=== PATIENT | female | born 1950 | race Caucasian/White ===

== ENCOUNTER → 2017-03-03 | Outpatient (CLI) | payer MEDICARE ==
--- NOTE | 2017-03-15 09:29 | ECHOF ---
Referral Reason:C50.112 breast CA,I10 Hypertention MEASUREMENTS -------- HEIGHT: 157.5 cm WEIGHT: 100.2 kg BP: 151/102 RVIDd: 3.0 cm (< 3.3) IVSd: 1.4 cm (0.6 - 1.1) LVIDd: 4.6 cm (3.9 - 5.3) LVPWd: 1.4 cm (0.6 - 1.1) IVSs: 1.9 cm LVIDs: 2.5 cm LVPWs: 2.0 cm LAESV Index (A-L): 22.48 ml/m Ao Diam: 2.9 cm (2.0 - 3.7) AV Cusp: 1.3 cm (1.5 - 2.6) LA Diam: 3.7 cm (2.7 - 3.8) EPSS: 0.7 cm MV E Julian: 0.96 m/s MV DecT: 233 ms MV A Julian: 0.84 m/s MV E/A Ratio: 1.15 RAP: 5.00 mmHg RVSP: 12.36 mmHg MV EF SLOPE: 47.07 mm/s (70 - 150) MV EXCURSION: 1.47 cm (> 18.000) FINDINGS -------- Sinus rhythm. This was a technically adequate study. The left ventricular size is normal. There is mild concentric left ventricular hypertrophy. Overa ll left ventricular systolic function is normal with, an EF between 55 - 60 %. The right ventricle is normal in size and function. Normal LA size by volume 22+/-6 ml/m2. The right atrium is normal in size. Aortic valve is trileaflet and is mildly thickened. Trace amount of aortic regurgitation. There is no evidence of aortic stenosis. The mitral valve leaflets are mildly thickened. There is trace to mild mitral regurgitation. Trace tricuspid regurgitation present. Right ventricular systolic pressure is normal at < 35 mmHg. There is no evidence of pulmonary hypertension. The pulmonic valve was not well visualized. The aortic root size is normal. Normal inferior vena cava with normal inspiratory collapse consistent with estimated right atrial pre ssure of 5 mmHg. The pericardium is normal. There is no pericardial effusion. CONCLUSIONS -------- 1. Sinus rhythm. 2. This was a technically adequate study. 3. The left ventricular size is normal. 4. There is mild concentric left ventricular hypertrophy. 5. Overall left ventricular systolic function is normal with, an EF between 55 - 60 %. 6. Normal LA size by volume 22+/-6 ml/m2. 7. Aortic valve is trileaflet and is mildly thickened. 8. Trace amount of aortic regurgitation. 9. The mitral valve leaflets are mildly thickened. 10. Trace tricuspid regurgitation present. 11. Right ventricular systolic pressure is normal at < 35 mmHg. 12. There is no evidence of pulmonary hypertension. 13. The pulmonic valve was not well visualized. 14. The aortic root size is normal. 15. There is no pericardial effusion. SUPERVISOR OF OFFICIALS: El Mullins RDCS
== END | disposition home or self-care (01) ==
LOC: RADECHMAIN 16:05
PROVIDERS: ATTEND Internal Medicine Hematology & Oncology
DX: R06.02 Shortness of breath (principal); C50.919 Malignant neoplasm of unspecified site of unspecified female breast; I10 Essential (primary) hypertension
CPT/HCPCS: 93306

== ENCOUNTER → 2018-02-22 | Outpatient (CLI) | payer MEDICARE ==
--- NOTE | 2018-02-22 16:36 | PN ---
PROGRESS NOTE DATE OF SERVICE: 02/22/2015 This patient is a 68-year-old lady who has been followed in the sleep center for treatment of obstructive sleep apnea-hypopnea syndrome. Patient continues to use her CPAP equipment every night for the whole night without any significant problems related to mask fitting, pressure or humidification. Her [place] Sleepiness Scale is 4. MEDICATIONS: 1. Prozac. 2. Zocor. 3. Tenormin. 4. Xanax. PHYSICAL EXAMINATION: GENERAL: A pleasant patient in no distress. VITAL SIGNS: BP 198/79, HR 64, RR 16, height 5 feet 1 inch, weight 228, body mass index 43, temperature 97.4. HEENT: PERRLA, EOMI. Evaluation of oropharynx showed tongue protrudes midline. Moderately low position of soft palate. NECK: Supple. No JVD. Thyroid is not palpable. LUNGS: Clear to percussion and to auscultation. Good air exchange. No wheezing or rhonchi. HEART: S1, S2 regular. No murmurs, gallops or rubs. ABDOMEN: Slightly obese. EXTREMITIES: No clubbing or cyanosis. METAL BED ASSEMBLER: Awake, alert, and oriented X3. Cranial nerves 2 to 7 intact. There is no fasciculation or atrophy. noted. No focal deficits observed. IMPRESSION: 1. Obstructive sleep apnea-hypopnea syndrome. Patient demonstrated good compliance with treatment, benefitting from treatment. 2. Obesity. 3. Hypertension. 4. Hyperlipidemia. 5. History of left breast cancer, status post surgical treatment, chemotherapy and radiation. 6. History of anxiety. PLAN: 1. Patient will continue to use her CPAP equipment every night for the whole night. 2. Watching and losing weight. 3. Prescription for all necessary CPAP supplies, including nasal pillow mask, tube, filters, chamber for the humidifier. 4. Sleep hygiene with regular time in bed for at least 8 hours. 5. No driving if feeling any sleepiness. Thank you very much for allowing me to participate in the management of your patient. Sincerely, Kadeem Gibbs MD, PhD, FAASM Diplomat of [employer] Flour Tester of [facility] [place] MMODL / JULIETAN: [id number] /
== END | disposition home or self-care (01) ==
LOC: SLEEP 14:36
PROVIDERS: ATTEND Internal Medicine
DX: G47.33 Obstructive sleep apnea (adult) (pediatric) (principal); Z99.89 Dependence on other enabling machines and devices; Z79.899 Other long term (current) drug therapy; E66.9 Obesity, unspecified; I10 Essential (primary) hypertension; E78.5 Hyperlipidemia, unspecified; F41.9 Anxiety disorder, unspecified; Z85.3 Personal history of malignant neoplasm of breast; Z92.21 Personal history of antineoplastic chemotherapy; Z92.3 Personal history of irradiation; Z68.41 Body mass index [BMI] 40.0-44.9, adult

== ENCOUNTER → 2019-02-07 | Outpatient (CLI) | payer MEDICARE ==
--- NOTE | 2019-02-07 16:02 | PN ---
PROGRESS NOTE DATE OF SERVICE: 02/07/2019 This patient is a 69-year-old lady who has been followed in Sleep Center for treatment of obstructive sleep apnea-hypopnea syndrome. The patient successfully continues to use her CPAP equipment every night for the whole night. Recently she has had some problems related to fitting of her nasal pillow mask. She is an using AirFit P10 nasal pillow mask. [place] Sleepiness Scale today is 4, which is normal. I checked the patient's CPAP unit. CPAP pressure of 14 cm of water. Usage is 30/30 nights for more than 4 hours with average usage 10.5 hours per night. Leak is 28 L/minute, which is high for the nasal pillow mask. Apnea-hypopnea index, though, is only 1.4, which is absolutely perfect. MEDICATIONS: 1. Baby aspirin. 2. Crestor. 3. Arimidex. 4. Atenolol. 5. Prozac. 6. Amlodipine. PHYSICAL EXAMINATION: GENERAL: A pleasant patient in no distress. VITAL SIGNS: BP 194/83 in right arm, HR 64, RR 16, height 5 feet 1 inch, weight 224 pounds, body mass index 42.3. Patient lost 4 pounds compared to her weight during her previous visit. Temperature 97.9. Oxygen saturation at room air 99%. HEENT: PERRLA, EOMI. Evaluation of oropharynx showed tongue protrudes midline. Low position of soft palate. Mallampati III. NECK: Supple. No JVD. Thyroid is not palpable. LUNGS: Clear to percussion and to auscultation. Good air exchange. No wheezing or rhonchi. HEART: S1, S2 regular. No murmurs, gallops or rubs. ABDOMEN: Obese. EXTREMITIES: No clubbing or cyanosis. GROWTH HACKER: Awake, alert, and oriented X3. Cranial nerves 2 to 7 intact. There is no fasciculation or atrophy. noted. No focal deficits observed. IMPRESSION: 1. Obstructive sleep apnea-hypopnea syndrome. The patient demonstrated 100% compliance with treatment, benefitting from treatment. 2. Hypertension. 3. Obesity. 4. Hyperlipidemia. 5. History of carcinoma of left breast, status post surgical treatment, chemotherapy and radiation. 6. History of anxiety. PLAN: 1. Patient will continue to use CPAP equipment every night for the whole night with the same pressure. 2. I will consider using a different style of nasal pillows, possibly DreamWear gel nasal pillows. 3. Losing weight. 4. Sleep hygiene with regular time in bed for at least 8 hours. 5. No driving if feeling any sleepiness. Thank you very much for allowing me to participate in the management of your patient. Sincerely, Kadeem Gibbs MD, PhD, FAASM Diplomat of [employer] Talent Buyer of [facility] [place] MMODL / IJN: [id number] /
== END | disposition home or self-care (01) ==
LOC: SLEEP 13:58
PROVIDERS: ATTEND Internal Medicine
DX: G47.33 Obstructive sleep apnea (adult) (pediatric) (principal); I10 Essential (primary) hypertension; E66.9 Obesity, unspecified; E78.5 Hyperlipidemia, unspecified; Z85.3 Personal history of malignant neoplasm of breast; Z92.21 Personal history of antineoplastic chemotherapy; Z86.59 Personal history of other mental and behavioral disorders; Z68.41 Body mass index [BMI] 40.0-44.9, adult; Z79.82 Long term (current) use of aspirin; Z79.899 Other long term (current) drug therapy

== ENCOUNTER 2020-03-17 07:52 | Day surgery (SDC) | payer MEDICARE ==
[2020-03-13 10:11] VITALS: BMI 39.3
[~2020-03-17 07:52] MED LIST: ALPRAZolam 0.25 MG TAB PO PRN; ALPRAZolam 0.5 MG TAB PO PRN; ASPIRIN 325 MG TAB PO STA; ATORVASTATIN 80 MG TAB PO STA; NITROGLYCERIN SL TABS 0.4 MG TAB SUBLINGUAL PRN; SODIUM CHLORIDE 0.9% 1,000 ML in EMPTY BAG 1 BAG IV ONE
[2020-03-17] MEDS ORDERED: SODIUM CHLORIDE 0.9% 1,000 ML IV ONE (08:15)
[2020-03-17 08:26] VITALS: RESP 16; TEMP 98.5
[2020-03-17 08:41] LABS: Basophils # (A) 0.1 k/uL (0-0.2); Basophils % (A) 1 %; Eosinophils # (A) 1.1 k/uL (0-0.7); Eosinophils % (A) 13 %; HCT 43.5 % (34.0-46.0); HGB 14.8 gm/dL (11.4-16.0); Lymphocytes % (A) 25 %; MCH 32.5 pg (25.0-35.0); MCHC 34.2 g/dL (31.0-37.0); Mean Platelet Volume 7.5; Monocytes # (A) 0.4 k/uL (0-1.0); Monocytes % (A) 4 %; Neutrophils # (A) 4.3 k/uL (1.3-7.7); Neutrophils % (A) 54 %; Platelet Count 191 k/uL (150-450); RBC 4.57 m/uL (3.80-5.40); RDW 12.2 % (11.5-15.5)
[2020-03-17] MEDS ORDERED: VERAPAMIL 2.5 MG/ML 2 ML AMP ONE (08:46)
[2020-03-17] MEDS ORDERED: LIDOCAINE 1% INJ 10MG/ML (20 ML MDV) ONE (08:46)
[2020-03-17] MEDS ORDERED: HEPARIN SODIUM 1,000 UN/ML (10ML VL) ONE (08:46)
[2020-03-17 08:47] LABS: African American GFR (CKD) >90 (>60 ml/min/1.73 sqM); Anion Gap 11 mmol/L; Blood Urea Nitrogen 14 mg/dL (7-17); Calcium 10.4 mg/dL (8.4-10.2); Carbon Dioxide 21 mmol/L (22-30); Chloride 105 mmol/L (98-107); Glucose 158 mg/dL (74-99); Non-African American GFR(CKD) 81 (>60 ml/min/1.73 sqM); Potassium 4.2 mmol/L (3.5-5.1); Sodium 137 mmol/L (137-145)
[2020-03-17] MEDS ORDERED: fentaNYL (PF) 50 MCG/ML 2 ML AMP ONE (08:47)
[2020-03-17] MEDS ORDERED: fentaNYL (PF) 50 MCG/ML 2 ML AMP IVP ONE (09:29)
[2020-03-17] MEDS ORDERED: LIDOCAINE 1% INJ 10MG/ML (20 ML MDV) SQ ONE (09:32)
[2020-03-17] MEDS ORDERED: VERAPAMIL SYRINGE (5 MG/10 ML) INTRAARTER ONE (09:47)
[2020-03-17] MEDS ORDERED: NITROGLYCERIN SL TABS 0.4 MG TAB SUBLINGUAL ONE (09:50)
[2020-03-17] MEDS ORDERED: HEPARIN SODIUM 1,000 UN/ML (10ML VL) IV ONE ×2 (09:52→09:58)
[2020-03-17] MEDS ORDERED: CLOPIDOGREL 75 MG TAB ONE (10:03)
[2020-03-17] MEDS ORDERED: CLOPIDOGREL 75 MG TAB PO ONE (10:08)
[2020-03-17] MEDS ORDERED: IOPAMIDOL-370 125ML BTL INJ ONE ×2 (10:09→10:22)
[2020-03-17] MEDS ORDERED: NITROGLYCERIN 1000MCG/10ML SYRINGE INTRACORON ONE (10:10)
[2020-03-17] MEDS ORDERED: RX INFO: IV CONTRAST WAS GIVEN 1 EACH MISC MISCELLANE PRN (10:27)
[2020-03-17] MEDS ORDERED: MAG HYDROX/AL HYDROX/SIMETH 30 ML CUP PO PRN (10:27)
[2020-03-17] MEDS ORDERED: ATROPINE SULFATE 0.1 MG/ML 10ML SYRINGE IV PRN (10:27)
[2020-03-17] MEDS ORDERED: NITROGLYCERIN SL TABS 0.4 MG TAB SUBLINGUAL PRN (10:27)
[2020-03-17] MEDS ORDERED: ZOLPIDEM 5 MG TAB PO PRN (10:27)
[2020-03-17] MEDS ORDERED: ALPRAZolam 0.25 MG TAB PO PRN (10:29)
[2020-03-17] MEDS ORDERED: SODIUM CHLORIDE 0.9% 1,000 ML IV SCH (10:30)
--- NOTE | 2020-03-17 11:01 | CC ---
CARDIAC CATHETERIZATION REPORT Mrs. Snyder is a 70-year-old female with known history of hypertension, hyperlipidemia, who has been complaining of dyspnea on exertion, had a myocardial perfusion imaging that was consistent with stress-induced ischemia. In view of that, recommendation regarding cardiac catheterization. The procedures, risks, and complication were discussed with the patient who is in full understanding and agreement. PROCEDURE: Patient was brought to the laboratory equipment cleaner in a fasting semi-sedated state after receiving fentanyl and Benadryl and achieving moderate conscious sedated state using Xylocaine anesthesias and Seldinger technique, a 6-Tajik sheath was introduced in the right radial artery. Selective right and left coronary angiography performed using 5-Tajik, 3.5 bend right and left Cynthia catheter multiple views of the coronary artery including hemiaxial views were obtained. Following that the 5-Tajik right Cynthia was used to cross the aortic valve and left ventricular end-diastolic pressure was calculated. following that catheters were removed, images were reviewed. Of note, the patient received 5000 units of intravenous heparin as well as intra-arterial verapamil. FINDINGS: FLUOROSCOPY: There was calcification involving the proximal LAD and the right coronary artery. LEFT MAIN: This is a large-sized vessel, bifurcating into left circumflex, left anterior descending artery. Left main coronary artery has no evidence of high-grade stenosis. LEFT ANTERIOR DESCENDING ARTERY: This is a large-sized vessel, reaching toward the apex. Tapers down in distal third, gives a diagonal branch proximally. The diagonal branch is small to moderate in caliber in the mid segment has a 70%-80% stenosis. The LAD in the mid segment has a 40% to 50% plaque. The rest of the vessel has intimal disease without any evidence of high-grade stenosis. LEFT CIRCUMFLEX: This is a large nondominant vessel, giving rise to 3 obtuse marginal branch. The left circumflex has mild intimal disease in the mid segment of 20%-30% without any evidence of high-grade stenosis. RIGHT CORONARY ARTERY: This is a large dominant vessel, bifurcating distally into PDA, posterolateral segment and branches. The right coronary artery proximally is calcified, has an eccentric 70% plaque. The rest of the vessel has no high-grade stenosis. LEFT VENTRICULOGRAM: Left ventriculogram was not performed. HEMODYNAMICS: There was no gradient across the aortic valve. The left ventricular end- diastolic pressure was 18-20 mmHg. CONCLUSION: 1. Significant stenosis in proximal RCA. 2. Significant stenosis in the first diagonal branch that is small in caliber. 3. Mild disease in the left circumflex and mild to moderate disease in the mid LAD. RECOMMENDATION: In view of finding anatomy, I recommend proceeding with angioplasty and stenting of the right coronary artery. The procedure, its risks and complication were discussed with the patient who is in full understanding and agreement. MMODL / IJN: [id number] /
--- NOTE | 2020-03-17 11:07 | PTCA ---
PERCUTANEOUSTRANS CORORONARY ANGIOGRAPHY Mrs. Snyder is a 70-year-old female with known history of hypertension, hyperlipidemia, who has been complaining of progressive dyspnea on exertion, underwent cardiac catheterization, was found to have significant stenosis in the proximal right coronary artery. In view of that, recommendation was made regarding angioplasty and stenting, the procedures, risks, and complication were discussed with the patient who is in full understanding and agreement. PROCEDURE: Attempted to cannulate the right coronary ostium with a 6-Belarusian AL1 were unsuccessful. That guide was removed and 6-Belarusian AL 0.75 guiding catheter introduced into the system after cannulating the ostium of the right coronary artery. A 0.014 balanced medium weight J-wire was advanced across the lesion, positioned distally. Then a 3.0 x 15 mm Xience Susy stent was deployed, postdilated at 16 atmospheres. Following that, the balloon was removed and a 3.25 x 12 mm NC Emerge balloon was advanced and one inflation at 16 atmospheres was done. After the last inflation, after appropriate wait, the balloon and the guidewire were withdrawn back in the guiding catheter. Images were obtained and repeated. Those images reveal stable successful stenting. At that point, the guiding catheter, the balloon and the guidewire were removed. The sheath was removed, hemostasis was obtained with deployment of a TR band. There was no immediate complication. The patient returned to room in stable condition. Of note, the patient had no significant chest pain or EKG changes with the inflation. She received in addition 3000 units of intravenous heparin as well as well as oral loading dose of clopidogrel. She had her ACT monitor. RESULTS: Successful stenting of the proximal right coronary artery with reduction of stenosis of 70% to 0%. RECOMMENDATION: Patient will be continued on aspirin, Plavix and statin. The importance of dual antiplatelet treatment were discussed with the patient and her family who are in understanding and agreement. Duration of sedation 55 minutes. MMODL / IJN: [id number] /
--- NOTE | 2020-03-17 11:07 | LTR ---
DATE OF SERVICE: 03/17/2020 RE: ClaudioNallely Dear Dr. Roth; I had the pleasure cardiac catheterization, coronary angioplasty and stenting on Mrs. Snyder at [facility] on March 17, 2020 and a full copy of the procedure note will be forwarded to you. In brief, she was found to have significant stenosis involving the proximal right coronary artery, underwent successful stenting of that vessel. She was also found to have significant obstructive disease involving a small diagonal branch and I would recommend to maximize her medical therapy in that regard. I will keep you updated on her progress and thank you again for allowing me to participate in this patient's personal care. Please feel free to call for any questions. Sincerely yours, MD AMRIT DevriesL / JULIETAN: [id number] /
[2020-03-17] MEDS ORDERED: amLODIPine 5 MG TAB PO STA (11:35)
[2020-03-17] MEDS ORDERED: amLODIPine 5 MG TAB ONE (11:35)
[2020-03-17] MEDS ORDERED: hydroCHLOROthiazide 25 MG TAB PO SCH (15:00)
[2020-03-17 16:11] VITALS: BP 165/83; PULSE 71
[2020-03-18] MEDS ORDERED: amLODIPine 5 MG TAB PO SCH (09:00)
[2020-03-18] MEDS ORDERED: atenoloL 50 MG TAB PO SCH (09:00)
[2020-03-18] MEDS ORDERED: ASPIRIN 81 MG PO SCH (09:00)
[2020-03-18] MEDS ORDERED: NON FORMULARY DRUG (Calcium Carbonate [Calcium] 600 MG Tablet) PO SCH (09:00)
[2020-03-18] MEDS ORDERED: FLUoxetine HCL 20 MG CAP PO SCH (09:00)
[2020-03-18] MEDS ORDERED: NON FORMULARY DRUG (Losartan Potassium [Cozaar] 100 MG Tablet) PO SCH (09:00)
[2020-03-18] MEDS ORDERED: ANASTROZOLE 1 MG TAB PO SCH (09:00)
[2020-03-18] MEDS ORDERED: NON FORMULARY DRUG (Rosuvastatin 10 MG Tablet) PO SCH (09:00)
[2020-03-18] MEDS ORDERED: CLOPIDOGREL 75 MG TAB PO SCH (10:28)
== END 2020-03-17 16:35 | disposition home or self-care (01) ==
LOC: CATHCVL 07:52
PROVIDERS: ATTEND Internal Medicine Interventional Cardiology
DX: I25.10 Atherosclerotic heart disease of native coronary artery without angina pectoris (principal); I10 Essential (primary) hypertension; E78.2 Mixed hyperlipidemia; E66.9 Obesity, unspecified; Z79.82 Long term (current) use of aspirin; Z79.899 Other long term (current) drug therapy; Z88.0 Allergy status to penicillin; Z88.2 Allergy status to sulfonamides; Z88.1 Allergy status to other antibiotic agents; Z90.49 Acquired absence of other specified parts of digestive tract; Z98.890 Other specified postprocedural states; Z82.49 Family history of ischemic heart disease and other diseases of the circulatory system; Z87.891 Personal history of nicotine dependence; Z68.41 Body mass index [BMI] 40.0-44.9, adult
CPT/HCPCS: 93458; 85347; 80048; 85025; C9600; C1769 ×2; C1887 ×2; C1725; C1874; C1894; J2001; J3010; J1644; Q9967

== ENCOUNTER → 2020-12-16 | Outpatient (CLI) | payer MEDICARE ==
--- NOTE | 2020-12-16 11:42 | XR ---
EXAMINATION TYPE: XR chest 2V DATE OF EXAM: 12/16/2020 COMPARISON: NONE HISTORY: Shortness of breath TECHNIQUE: Frontal and lateral views of the chest are obtained. FINDINGS: Scattered senescent parenchymal changes noted. Hyperinflation compatible with COPD. No evidence for infiltrate. No evidence for atelectasis. Heart size is stable. Mediastinal structures are stable and grossly unremarkable. No evidence for hilar prominence. Degenerative changes dorsal spine. IMPRESSION: 1. No evidence for acute pulmonary disease.
== END | disposition home or self-care (01) ==
LOC: RADXRMAIN 10:36
PROVIDERS: ATTEND Internal Medicine Hematology & Oncology
DX: R06.02 Shortness of breath (principal)
CPT/HCPCS: 71046

== ENCOUNTER → 2022-01-24 | Outpatient (CLI) | payer MEDICARE ==
--- NOTE | 2022-01-24 17:07 | NM ---
EXAMINATION TYPE: NM bone scan whole body DATE OF EXAM: 01/24/2022 COMPARISON: NONE HISTORY: 72-year-old female C5 0.112, breast cancer, R52 bone pain. TECHNIQUE: Delayed whole-body scanning was performed following the injection of 24.6 mCi Tc 99m MDP. Images acquired 3 hours post injection. FINDINGS: Scattered degenerative tracer activity at the right greater than left sternoclavicular joints, both s houlders, posterior elements of the lower lumbar spine, mild scattered throughout the mid and lower t horacic spine, both knees especially the medial compartments, as well as the ankles and feet. No susp icious distribution of activity identified. IMPRESSION: Scattered degenerative tracer activity as above. No scintigraphic evidence for osseous metastatic dis ease.
== END | disposition home or self-care (01) ==
LOC: RADNMMAIN 10:55
PROVIDERS: ATTEND Internal Medicine Hematology & Oncology
DX: C50.112 Malignant neoplasm of central portion of left female breast (principal)
CPT/HCPCS: 78306; A9503

== ENCOUNTER 2022-12-15 12:23 | Day surgery (SDC) | payer MEDICARE ==
[~2022-12-15 12:23] MED LIST changes: +ACETAMINOPHEN TAB 500 MG TAB PO PRN; -ALPRAZolam 0.25 MG TAB PO PRN; -ALPRAZolam 0.5 MG TAB PO PRN; -ASPIRIN 325 MG TAB PO STA; -ATORVASTATIN 80 MG TAB PO STA; +HEPARIN SODIUM,PORCINE/PF 5,000 UNIT/0.5 ML SYRINGE SQ PRN; -NITROGLYCERIN SL TABS 0.4 MG TAB SUBLINGUAL PRN; +Pre Op ABX Message 1 EACH MISC MISCELLANE ONE; -SODIUM CHLORIDE 0.9% 1,000 ML in EMPTY BAG 1 BAG IV ONE
[2022-12-15] MEDS ORDERED: ONDANSETRON 4 MG/2 ML VIAL ONE (12:53)
[2022-12-15] MEDS ORDERED: LACTATED RINGERS 1,000 ML IV ONE (13:00)
[2022-12-15] MEDS ORDERED: MIDAZOLAM 2 MG/2 ML VIAL ONE (13:45)
[2022-12-15] MEDS ORDERED: fentaNYL (PF) 50 MCG/ML 2 ML AMP ONE (13:45)
[2022-12-15] MEDS ORDERED: ePHEDrine 50 MG/ML 1 ML VIAL ONE (13:45)
[2022-12-15] MEDS ORDERED: PROPOFOL 10 MG/ML 20 ML VIAL IV ONE (13:45)
[2022-12-15] MEDS ORDERED: LIDOCAINE 2% INJ 20 MG/ML (2 ML VIAL) ONE (13:45)
[2022-12-15] MEDS ORDERED: ceFAZolin 1,000 MG VIAL ONE (14:00)
[2022-12-15] MEDS ORDERED: SODIUM CHLORIDE 0.9% 100 ML BAG ONE (14:00)
[2022-12-15] MEDS ORDERED: HEPARIN SODIUM,PORCINE 100 UNIT/ML 5 ML VIAL IV ONE ×2 (14:13)
[2022-12-15] MEDS ORDERED: LIDOCAINE (PF) 10 MG/ML 2 ML VIAL SQ ONE ×2 (14:14)
[2022-12-15] MEDS ORDERED: SODIUM CHLORIDE 0.9% 50 ML with ceFAZolin 2,000 MG IV ONE ×2 (14:17)
--- NOTE | 2022-12-15 14:50 | FL ---
Intraoperative/procedural fluoroscopic services were provided for right IJ Port-A-Cath placement. Tot al fluoroscopy time is 8.3 seconds with a total of 2 submitted images to PACS. Total DAP [id number] mGym 2. Please see the operative note for further details.
[2022-12-15 15:03] VITALS: TEMP 97.3
[2022-12-15] MEDS ORDERED: NALOXONE 0.4 MG/ML 1 ML VIAL IV PRN (15:14)
--- NOTE | 2022-12-15 15:14 | P.OP ---
Date of Procedure: 12/15/22 Procedure(s) Performed: PREOPERATIVE DIAGNOSIS: Bladder cancer POSTOPERATIVE DIAGNOSIS: Same PROCEDURE: Port-A-Cath placement with fluoroscopic and ultrasound guidance SURGEON: Derian EBL: Minimal ANESTHESIA: Sedation COMPLICATIONS: None OPERATIVE PROCEDURE: Patient was brought and placed on the operative table in the supine position. The patient was sedated per anesthesia that time. The chest and neck were prepped and draped in usual sterile fashion. The ultrasound probe was used to identify the location of the right internal jugular vein. The skin was localized with lidocaine. The Seldinger needle was advanced into the IJ under ultrasound guidance. The wire was advanced through the needle under fluoroscopic guidance into the superior vena cava. A port pocket was created in the right infraclavicular location including the medial aspect of the previous scar site. The catheter was tunneled from the wire entrance site to the port pocket. The port was then connected to the catheter. The dilator introducer was threaded over the guidewire. The guidewire and dilator were then removed. The catheter was advanced through the introducer and introducer was then removed. The tip was seen to be in the right atrial junction via fluoroscopy. A picture of the radiograph showing the tip at the radial digital junction was taken. Port was flushed with both saline and a Hep-Lock solution. There was good flow both in and out of the port. The port was sutured in underlying tissues using 3-0 silk sutures. The subcutaneous tissues were reapproximated using 3-0 Vicryl sutures and the skin at both locations using 4-0 Monocryl sutures. Skin glue and sterile dressings then applied. DISPOSITION: Stable to recovery room
[2022-12-15] MEDS ORDERED: hydrALAZINE HCL 20 MG/ML 1 ML VIAL IVP ONE (15:34)
--- NOTE | 2022-12-15 15:38 | XR ---
EXAMINATION TYPE: XR chest 1V DATE OF EXAM: 12/15/2022 3:31 PM COMPARISON: Chest radiographs from 12/16/2020 TECHNIQUE: XR chest 1V Portable AP radiograph of the chest. CLINICAL INDICATION:Female, 72 years old with history of POST PORT PLACEMENT; FINDINGS: Lungs/Pleura: There is no evidence of pleural effusion, focal consolidation, or pneumothorax. Pulmonary vascularity: Unremarkable. Heart/mediastinum: Cardiomediastinal silhouette is enlarged. Atherosclerotic calcifications are seen in the aorta. Musculoskeletal: No acute osseous pathology. Degenerative changes of the thoracic spine. Other findings: Surgical clips in the left breast and axilla. Lines/Tubes: [id number] projecting over the right hemithorax with distal tip at the mid SVC. IMPRESSION: Interval placement of right IJ [id number] with distal tip of catheter at the mid SVC. No pneumotho rax.
[2022-12-15 16:11] VITALS: BP 172/69; PULSE 70; RESP 18
[2022-12-15] MEDS ORDERED: ACETAMINOPHEN TAB 325 MG TAB ONE (16:26)
[2022-12-15] MEDS ORDERED: ACETAMINOPHEN TAB 325 MG TAB PO ONE (16:27)
== END 2022-12-15 16:57 | disposition home or self-care (01) ==
LOC: OR 12:23
PROVIDERS: ATTEND Surgery
DX: Z45.2 Encounter for adjustment and management of vascular access device (principal); C67.9 Malignant neoplasm of bladder, unspecified; I10 Essential (primary) hypertension; E78.5 Hyperlipidemia, unspecified; Z87.891 Personal history of nicotine dependence; Z79.899 Other long term (current) drug therapy
CPT/HCPCS: 36561; 77001; 71045; C1788; J2250; J0360; J2001 ×2; J1642; J2405; J0690; J3010; J2704; J1644

== ENCOUNTER 2023-10-05 11:35 | Observation (INO) | payer MEDICARE ==
--- NOTE | 2023-10-05 12:57 | ED ---
GI Bleed HPI - General Chief complaint: GI Bleed Stated complaint: Rectal bleeding Time Seen by Provider: 10/05/23 12:25 Source: patient, RN notes reviewed, old records reviewed Mode of arrival: ambulatory Limitations: no limitations - History of Present Illness Initial comments: This is a 73-year-old female to the ER for evaluation of bright red blood per rectum. MD complaint: blood streaked stool, gross hematochezia -: unknown Quality: painless Consistency: intermittent Improves with: none Worsens with: none Context: history of GI bleed Associated Symptoms: denies other symptoms, weakness - Related Data Home Medications Medication Instructions Recorded Confirmed Aspirin [Adult Low Dose Aspirin EC] 81 mg PO HS 03/13/20 10/05/23 FLUoxetine HCL [PROzac] 20 mg PO DAILY 03/13/20 10/05/23 Multivitamins, Thera [Multivitamin 1 tab PO DAILY 12/09/22 10/05/23 (formulary)] Spironolactone [Aldactone] 25 mg PO DAILY 12/14/22 10/05/23 hydroCHLOROthiazide [Hydrodiuril] 25 mg PO DAILY 12/14/22 10/05/23 ALPRAZolam [Xanax] 0.5 mg PO TID PRN 10/05/23 10/05/23 Bumetanide [Bumex] 1 mg PO DAILY 10/05/23 10/05/23 Calcium Carbonate/Vitamin D3 1 tab PO DAILY 10/05/23 10/05/23 [Calcium 600 mg-Vit D3 5 mcg (200 unit)] Losartan [Cozaar] 50 mg PO DAILY 10/05/23 10/05/23 Rosuvastatin [Crestor] 20 mg PO HS 10/05/23 10/05/23 dilTIAZem HCL 30 mg PO TID@,,10/05/23 10/05/23 Previous Rx's Medication Instructions Recorded Nitroglycerin Sl Tabs [Nitrostat] 0.4 mg SUBLINGUAL Q5M PRN #25 tab 03/17/20 Allergies Allergy/AdvReac Type Severity Reaction Status Date / Time adhesive tape Allergy Rash/Hives Verified 10/05/23 15:13 clarithromycin Allergy Rash/Hives Verified 10/05/23 15:13 Penicillins Allergy Unknown Verified 10/05/23 15:13 Childhood Sulfa (Sulfonamide Allergy Unknown Verified 10/05/23 15:13 Antibiotics) Childhood Review of Systems ROS Statement: Those systems with pertinent positive or pertinent negative responses have been documented in the HPI. ROS Other: All systems not noted in ROS Statement are negative. Past Medical History Past Medical History: Atrial Fibrillation, Cancer, Heart Failure, Diabetes Mellitus, Hyperlipidemia, Hypertension, Osteoarthritis (OA), Renal Disease, Sleep Apnea/CPAP/BIPAP Additional Past Medical History / Comment(s): lt breast cancer-*do not use lt arm for b/p,IV's*, new dx. bladder cancer- had surg. heart murmur, SOB w/exertion. has cpap , bladder CA History of Any Multi-Drug Resistant Organisms: None Reported Past Surgical History: Breast Surgery, Section, Cholecystectomy, Heart Catheterization With Stent, Orthopedic Surgery Additional Past Surgical History / Comment(s): lt breast nipple removed, 20 lymph nodes removed lt axillae, hemorroidectomy, melvin. feet surgery, rt great toe screws, bladder tumor removed September @[place] Past Anesthesia/Blood Transfusion Reactions: Previous Problems w/ Anesthesia Additional Past Anesthesia/Blood Transfusion Reaction / Comment(s): pt has anesthesia letter indicating need for glidoscope due to difficult intubation Date of Last Stent Placement:: 2019 Past Psychological History: Anxiety, Depression Smoking Status: Former smoker Past Alcohol Use History: Daily Past Drug Use History: None Reported - Past Family History Father Family Medical History: COPD, Coronary Artery Disease (CAD) Additional Family Medical History / Comment(s): Fluid around heart Mother Family Medical History: No Reported History General Exam Limitations: no limitations General appearance: alert, in no apparent distress Head exam: Present: atraumatic, normocephalic, normal inspection Eye exam: Present: normal appearance, PERRL, EOMI. Absent: scleral icterus, conjunctival injection, periorbital swelling ENT exam: Present: normal exam, mucous membranes moist Neck exam: Present: normal inspection. Absent: tenderness, meningismus, lymphadenopathy Respiratory exam: Present: normal lung sounds bilaterally. Absent: respiratory distress, wheezes, rales, rhonchi, stridor Cardiovascular Exam: Present: regular rate, normal rhythm, normal heart sounds. Absent: systolic murmur, diastolic murmur, rubs, gallop, clicks GI/Abdominal exam: Present: soft, normal bowel sounds. Absent: distended, tenderness, guarding, rebound, rigid Extremities exam: Present: normal inspection, full ROM, normal capillary refill. Absent: tenderness, pedal edema, joint swelling, calf tenderness Back exam: Present: normal inspection Neurological exam: Present: alert, oriented X3, CN II-XII intact Psychiatric exam: Present: normal affect, normal mood Skin exam: Present: warm, dry, intact, normal color. Absent: rash Course Vital Signs 10/05/23 12:00 Temperature 98.1 F Pulse Rate 89 Respiratory 18 Rate Blood Pressure 111/74 O2 Sat by Pulse 98 Oximetry - Reevaluation(s) Reevaluation #1: 10/05/23 13:16 Medical records reviewed Reevaluation #2: 10/05/23 13:16 Symptoms improved unchanged Reevaluation #3: 10/05/23 15:25 When results and questions answered Reevaluation #4: Was pt. sent in by a medical professional or institution (, PA, PARKING METER ATTENDANT, urgent care, hospital, or retirement...) When possible be specific @ -no Did you speak to anyone other than the patient for history (EMS, parent, family, police, friend...)? What history was obtained from this source @ -no Did you review nursing and triage notes (agree or disagree)? Why? @ -agree Are old charts reviewed (outside hosp., previous admission, EMS record, old EKG, old radiological studies, urgent care reports/EKG's, retirement records)? Report findings @ -yes Differential Diagnosis (chest pain, altered mental status, abdominal pain women, abdominal pain men, vaginal bleeding, weakness, fever, dyspnea, syncope, headache, dizziness, GI bleed, back pain, seizure, CVA, palpatations, mental health, musculoskeletal)? @ -prior EKG interpreted by me (3pts min.). @ -yes X-rays interpreted by me (1pt min.). @ -yes negative for acute disease CT interpreted by me (1pt min.). @ -no U/S interpreted by me (1pt. min.). @ -no What testing was considered but not performed or refused? (CT, X-rays, U/S, labs)? Why? @ -none What meds were considered but not given or refused? Why? @ -none Did you discuss the management of the patient with other professionals (professionals i.e. , PA, PARKING METER ATTENDANT, lab, RT, psych nurse, high school social studies teacher, honing machine operator semiautomatic, teacher, workplace rehabilitation officer, transplant case manager)? Give summary @ -no Was smoking cessation discussed for >3mins.? @ -no Were there social determinants of health that impacted care today? How? (Homelessness, low income, unemployed, alcoholism, drug addiction, transportati on, low edu. Level, literacy, decrease access to med. care, penitentiary, rehab)? @ -none Was there de-escalation of care discussed even if they declined (Discuss DNR or withdrawal of care, Hospice)? DNR status @ -no What co-morbidities impacted this encounter? (DM, HTN, Smoking, COPD, CAD, Cancer, CVA, ARF, Chemo, Hep., AIDS, mental health diagnosis, sleep apnea, morbid obesity)? @ -none Was patient admitted / discharged? Hospital course, mention meds given and route, prescriptions, significant lab abnormalities, going to OR and other pertinent info. @ - Was critical care preformed (if so, how long)? @ -no Undiagnosed new problem with uncertain prognosis? @ -no Drug Therapy requiring intensive monitoring for toxicity (Heparin, Nitro, Insulin, Cardizem)? @ -no Were any procedures done? @ -no Diagnosis/symptom? @ - Acute, or Chronic, or Acute on Chronic? @ -Acute Uncomplicated (without systemic symptoms) or Complicated (systemic symptoms)? @ -Complicated Side effects of treatment? @ -no Exacerbation, Progression, or Severe Exacerbation? @ -exacerbation Poses a threat to life or bodily function? How? (Chest pain, [place], NV, pneumonia, PE, COPD, DKA, ARF, appy, cholecystitis, CVA, Diverticulitis, Homicidal, Suicidal, threat to staff... and all critical care pts) @ -yes Reevaluation #5: Differential GI Bleed: Esophageal varices, aortoenteric fistula, [place], gastritis, peptic ulcer disease, diverticulosis, inflammatory bowel disease, hemorrhoids, fissure, colitis, malignancy, Meckels diverticulum, this is not meant to be an all- inclusive list. Medical Decision Making - Medical Decision Making 73 Female with noted bright red blood per rectum twice yesterday, blood and blood clots without stool. Patient has had no episodes today no blood thinners, will admit for GI evaluation and monitoring of hemoglobin she has gone from 9-8 0.5-8.0 here in the emergency room today in the last week - Lab Data Result diagrams: 10/05/23 12:47 10/05/23 12:47 Lab Results 10/05/23 10/05/23 10/05/23 Range/Units 12:47 12:47 12:47 WBC 5.4 (3.8-10.6) k/uL RBC 2.60 L (3.80-5.40) m/uL Hgb 8.0 L (11.4-16.0) gm/dL Hct 24.8 L (34.0-46.0) % MCV 95.5 (80.0-100.0) fL MCH 30.6 (25.0-35.0) pg MCHC 32.1 (31.0-37.0) g/dL RDW 13.9 (11.5-15.5) % Plt Count 215 (150-450) k/uL MPV 8.1 Neutrophils % 76 % Lymphocytes % 11 % Monocytes % 5 % Eosinophils % 6 % Basophils % 0 % Neutrophils # 4.1 (1.3-7.7) k/uL Lymphocytes # 0.6 L (1.0-4.8) k/uL Monocytes # 0.3 (0-1.0) k/uL Eosinophils # 0.3 (0-0.7) k/uL Basophils # 0.0 (0-0.2) k/uL APTT 22.2 (22.0-30.0) sec Sodium 131 L (137-145) mmol/L Potassium 3.9 (3.5-5.1) mmol/L Chloride 100 (98-107) mmol/L Carbon Dioxide 20 L (22-30) mmol/L Anion Gap 11 mmol/L BUN 39 H (7-17) mg/dL Creatinine 1.77 H (0.52-1.04) mg/dL Est GFR (CKD-EPI)AfAm 32 (>60 ml/min/1.73 sqM) Est GFR (CKD-EPI)NonAf 28 (>60 ml/min/1.73 sqM) Glucose 116 H (74-99) mg/dL Calcium 10.2 (8.4-10.2) mg/dL Magnesium 1.7 (1.6-2.3) mg/dL Total Bilirubin 0.7 (0.2-1.3) mg/dL AST 26 (14-36) U/L ALT 18 (4-34) U/L Alkaline Phosphatase 70 (38-126) U/L Ammonia (<30) umol/L Troponin I (0.000-0.034) ng/mL Total Protein 7.8 (6.3-8.2) g/dL Albumin 4.5 (3.5-5.0) g/dL Lipase 129 (23-300) U/L Blood Type Blood Type Confirm Blood Type Recheck Bld Type Recheck Status Antibody Screen Spec Expiration Date 10/05/23 10/05/23 10/05/23 Range/Units 12:47 12:47 12:47 WBC (3.8-10.6) k/uL RBC (3.80-5.40) m/uL Hgb (11.4-16.0) gm/dL Hct (34.0-46.0) % MCV (80.0-100.0) fL MCH (25.0-35.0) pg MCHC (31.0-37.0) g/dL RDW (11.5-15.5) % Plt Count (150-450) k/uL MPV Neutrophils % % Lymphocytes % % Monocytes % % Eosinophils % % Basophils % % Neutrophils # (1.3-7.7) k/uL Lymphocytes # (1.0-4.8) k/uL Monocytes # (0-1.0) k/uL Eosinophils # (0-0.7) k/uL Basophils # (0-0.2) k/uL APTT (22.0-30.0) sec Sodium (137-145) mmol/L Potassium (3.5-5.1) mmol/L Chloride (98-107) mmol/L Carbon Dioxide (22-30) mmol/L Anion Gap mmol/L BUN (7-17) mg/dL Creatinine (0.52-1.04) mg/dL Est GFR (CKD-EPI)AfAm (>60 ml/min/1.73 sqM) Est GFR (CKD-EPI)NonAf (>60 ml/min/1.73 sqM) Glucose (74-99) mg/dL Calcium (8.4-10.2) mg/dL Magnesium (1.6-2.3) mg/dL Total Bilirubin (0.2-1.3) mg/dL AST (14-36) U/L ALT (4-34) U/L Alkaline Phosphatase (38-126) U/L Ammonia <9 (<30) umol/L Troponin I <0.012 (0.000-0.034) ng/mL Total Protein (6.3-8.2) g/dL Albumin (3.5-5.0) g/dL Lipase (23-300) U/L Blood Type O Positive Blood Type Confirm Blood Type Recheck No Previous Record Bld Type Recheck Status CABO Indicated Antibody Screen NEGATIVE Spec Expiration Date 10/08/2023 - 234610/05/23 Range/Units 14:08 WBC (3.8-10.6) k/uL RBC (3.80-5.40) m/uL Hgb (11.4-16.0) gm/dL Hct (34.0-46.0) % MCV (80.0-100.0) fL MCH (25.0-35.0) pg MCHC (31.0-37.0) g/dL RDW (11.5-15.5) % Plt Count (150-450) k/uL MPV Neutrophils % % Lymphocytes % % Monocytes % % Eosinophils % % Basophils % % Neutrophils # (1.3-7.7) k/uL Lymphocytes # (1.0-4.8) k/uL Monocytes # (0-1.0) k/uL Eosinophils # (0-0.7) k/uL Basophils # (0-0.2) k/uL APTT (22.0-30.0) sec Sodium (137-145) mmol/L Potassium (3.5-5.1) mmol/L Chloride (98-107) mmol/L Carbon Dioxide (22-30) mmol/L Anion Gap mmol/L BUN (7-17) mg/dL Creatinine (0.52-1.04) mg/dL Est GFR (CKD-EPI)AfAm (>60 ml/min/1.73 sqM) Est GFR (CKD-EPI)NonAf (>60 ml/min/1.73 sqM) Glucose (74-99) mg/dL Calcium (8.4-10.2) mg/dL Magnesium (1.6-2.3) mg/dL Total Bilirubin (0.2-1.3) mg/dL AST (14-36) U/L ALT (4-34) U/L Alkaline Phosphatase (38-126) U/L Ammonia (<30) umol/L Troponin I (0.000-0.034) ng/mL Total Protein (6.3-8.2) g/dL Albumin (3.5-5.0) g/dL Lipase (23-300) U/L Blood Type Blood Type Confirm O Positive Blood Type Recheck Bld Type Recheck Status Antibody Screen Spec Expiration Date - EKG Data -: EKG Interpreted by Me (EKG is sinus 83 [place] 177 QRS 105 QTc 424) Disposition Clinical Impression: Bladder cancer, GI bleed, Lower gastrointestinal hemorrhage Disposition: ADMITTED IP TO THIS [facility] Condition: Fair Instructions (If sedation given, give patient instructions): Gastrointestinal Bleeding (ED) Is patient prescribed a controlled substance at d/c from ED?: No Referrals: Isiah Roth MD [Primary Care Provider] - 1-2 days
[2023-10-05 13:29] LABS: Basophils % (A) 0 %; Eosinophils # (A) 0.3 k/uL (0-0.7); Eosinophils % (A) 6 %; HCT 24.8 % (34.0-46.0); Lymphocytes # (A) 0.6 k/uL (1.0-4.8); Lymphocytes % (A) 11 %; MCH 30.6 pg (25.0-35.0); MCHC 32.1 g/dL (31.0-37.0); MCV 95.5 fL (80.0-100.0); Mean Platelet Volume 8.1; Monocytes # (A) 0.3 k/uL (0-1.0); Monocytes % (A) 5 %; Neutrophils # (A) 4.1 k/uL (1.3-7.7); Neutrophils % (A) 76 %; Platelet Count 215 k/uL (150-450); RDW 13.9 % (11.5-15.5); WBC 5.4 k/uL (3.8-10.6)
[2023-10-05] MEDS: SODIUM CHLORIDE 0.9% 1,000 ML IV STA (13:41)
[2023-10-05] MEDS: PANTOPRAZOLE 40 MG/10 ML VIAL IVP STA (13:41)
[2023-10-05] MEDS: SODIUM CHLORIDE 0.9% 500 ML 500 ML IV STA (13:42)
[2023-10-05 13:59] LABS: ALT 18 U/L (4-34); AST 26 U/L (14-36); African American GFR (CKD) 32 (>60 ml/min/1.73 sqM); Albumin 4.5 g/dL (3.5-5.0); Alkaline Phosphatase 70 U/L (38-126); Anion Gap 11 mmol/L; Blood Urea Nitrogen 39 mg/dL (7-17); Calcium 10.2 mg/dL (8.4-10.2); Carbon Dioxide 20 mmol/L (22-30); Chloride 100 mmol/L (98-107); Glucose 116 mg/dL (74-99); Lipase 129 U/L (23-300); Magnesium 1.7 mg/dL (1.6-2.3); Non-African American GFR(CKD) 28 (>60 ml/min/1.73 sqM); Potassium 3.9 mmol/L (3.5-5.1); Sodium 131 mmol/L (137-145); Total Bilirubin 0.7 mg/dL (0.2-1.3); Total Protein 7.8 g/dL (6.3-8.2)
[2023-10-05] MEDS ORDERED: NALOXONE 0.4 MG/ML 1 ML VIAL IV PRN (15:23)
[2023-10-05] MEDS ORDERED: ONDANSETRON 4 MG/2 ML VIAL IVP PRN (15:23)
[2023-10-05] MEDS: SODIUM CHLORIDE 0.9% 1,000 ML IV SCH (17:42)
[2023-10-05] MEDS ORDERED: NITROGLYCERIN SL TABS 0.4 MG TAB SUBLINGUAL PRN (19:14)
[2023-10-05] MEDS: ATORVASTATIN 40 MG TAB PO SCH (20:58)
[2023-10-06] MEDS: DILTIAZEM ORAL 30 MG TAB PO SCH (00:44)
[2023-10-06] MEDS: MAGNESIUM CITRATE 296 ML BOTTLE PO ONE (07:57)
[2023-10-06] MEDS: MULTIVITAMINS, THERA 1 EACH TAB PO SCH (09:07)
[2023-10-06] MEDS: FLUoxetine HCL 20 MG CAP PO SCH (09:07)
[2023-10-06 09:42] LABS: ALT 18 U/L (4-34); AST 31 U/L (14-36); African American GFR (CKD) 37 (>60 ml/min/1.73 sqM); Albumin 4.4 g/dL (3.5-5.0); Alkaline Phosphatase 71 U/L (38-126); Anion Gap 10 mmol/L; Blood Urea Nitrogen 36 mg/dL (7-17); Calcium 10.4 mg/dL (8.4-10.2); Carbon Dioxide 20 mmol/L (22-30); Chloride 104 mmol/L (98-107); Glucose 133 mg/dL (74-99); Magnesium 1.9 mg/dL (1.6-2.3); Non-African American GFR(CKD) 32 (>60 ml/min/1.73 sqM); Phosphorus 4.2 mg/dL (2.5-4.5); Sodium 134 mmol/L (137-145); Total Bilirubin 0.9 mg/dL (0.2-1.3); Total Protein 7.8 g/dL (6.3-8.2)
[2023-10-06 09:50] LABS: Basophils % (A) 0 %; Eosinophils # (A) 0.5 k/uL (0-0.7); Eosinophils % (A) 8 %; HGB 8.4 gm/dL (11.4-16.0); Lymphocytes # (A) 0.5 k/uL (1.0-4.8); Lymphocytes % (A) 8 %; MCH 30.9 pg (25.0-35.0); MCHC 32.3 g/dL (31.0-37.0); MCV 95.6 fL (80.0-100.0); Mean Platelet Volume 7.6; Monocytes # (A) 0.4 k/uL (0-1.0); Monocytes % (A) 6 %; Neutrophils # (A) 4.5 k/uL (1.3-7.7); Neutrophils % (A) 75 %; Platelet Count 229 k/uL (150-450); RBC 2.72 m/uL (3.80-5.40)
--- NOTE | 2023-10-06 10:18 | P.CONS ---
History of Present Illness - Reason for Consult Consult date: 10/06/23 GI bleed Requesting physician: Rudy Edwards - Chief Complaint Bright red blood per rectum - History of Present Illness This is a pleasant 73-year-old female who was told by her primary care physician Dr. Tipton to come to the emergency department for evaluation for complaints of rectal bleeding. She has a past medical history of bladder cancer status post chemo and radiation which was completed in January 2023, breast cancer, atrial fibrillation, coronary artery disease, diabetes mellitus, hyperlipidemia, hypertension, osteoarthritis, chronic renal disease and sleep apnea. She is not on any anticoagulation, currently only on aspirin 81 mg daily. States that she had bright red bleeding and clots x 2. This was a few days ago. She had a couple episodes. She has not had any bleeding for the last 2 days and none today. Bleeding occurred with bowel movements. She denied any abdominal pain at time of bleeding no abdominal cramping. She has had no nausea or vomiting. She continues to have no pain in her belly. She was anemic on admission with a hemoglobin of 8 last hemoglobin from 2019 was normal. Last colonoscopy she reports was with Dr. Oh 2 years ago done at the [facility] and states it was normal. Today's labs WBC 6.0 hemoglobin 8.4 hematocrit 26 platelet count 229,000 sodium 134 potassium 4.0 BUN 36 creatinine 1.5 magnesium 1.9 total bilirubin 0.9 AST 31 ALT 18 alkaline phosphatase 71 Review of Systems REVIEW OF SYSTEMS: CARDIOPULMONARY: No chest pain or shortness of breath. Gastrointestinal: No abdominal pain. No nausea or vomiting. No hematemesis, coffee-ground emesis. Rectal bleeding with bowel movements x 2 days with episode of clots. None for the last 2 days. GENITOURINARY: No dysuria or hematuria. MUSCULOSKELETAL: Reports normal range of motion. SKIN: No rashes. No jaundice. ENDOCRINE: No chills, fevers. No excessive weight gain or loss. No polydipsia or polyuria. PSYCHIATRIC: Unremarkable. NEUROLOGY: No change in mental status. Denies dizziness, headache. ENT: Vision unremarkable. CONSTITUTIONAL: No recent weight loss. No fever, chills, night sweats. Past Medical History Past Medical History: Atrial Fibrillation, Cancer, Heart Failure, Diabetes Mellitus, Hyperlipidemia, Hypertension, Osteoarthritis (OA), Renal Disease, Sleep Apnea/CPAP/BIPAP Additional Past Medical History / Comment(s): lt breast cancer-*do not use lt arm for b/p,IV's*, new dx. bladder cancer- had surg. heart murmur, SOB w/exertion. has cpap , bladder CA History of Any Multi-Drug Resistant Organisms: None Reported Past Surgical History: Breast Surgery, Section, Cholecystectomy, Heart Catheterization With Stent, Orthopedic Surgery Additional Past Surgical History / Comment(s): lt breast nipple removed, 20 lymph nodes removed lt axillae, hemorroidectomy, melvin. feet surgery, rt great toe screws, bladder tumor removed September @[place] Past Anesthesia/Blood Transfusion Reactions: Previous Problems w/ Anesthesia Additional Past Anesthesia/Blood Transfusion Reaction / Comm: pt has anesthesia letter indicating need for glidoscope due to difficult intubation Date of Last Stent Placement:: 2019 Past Psychological History: Anxiety, Depression Smoking Status: Former smoker Past Alcohol Use History: Daily Past Drug Use History: None Reported - Past Family History Father Family Medical History: COPD, Coronary Artery Disease (CAD) Additional Family Medical History / Comment(s): Fluid around heart Mother Family Medical History: No Reported History Medications and Allergies Home Medications Medication Instructions Recorded Confirmed Type Aspirin [Adult Low Dose Aspirin EC] 81 mg PO HS 03/13/20 10/05/23 History FLUoxetine HCL [PROzac] 20 mg PO DAILY 03/13/20 10/05/23 History Nitroglycerin Sl Tabs [Nitrostat] 0.4 mg SUBLINGUAL Q5M PRN #25 tab 03/17/20 10/05/23 Rx Multivitamins, Thera [Multivitamin 1 tab PO DAILY 12/09/22 10/05/23 History (formulary)] Spironolactone [Aldactone] 25 mg PO DAILY 12/14/22 10/05/23 History hydroCHLOROthiazide [Hydrodiuril] 25 mg PO DAILY 12/14/22 10/05/23 History ALPRAZolam [Xanax] 0.5 mg PO TID PRN 10/05/23 10/05/23 History Bumetanide [Bumex] 1 mg PO DAILY 10/05/23 10/05/23 History Calcium Carbonate/Vitamin D3 1 tab PO DAILY 10/05/23 10/05/23 History [Calcium 600 mg-Vit D3 5 mcg (200 unit)] Losartan [Cozaar] 50 mg PO DAILY 10/05/23 10/05/23 History Rosuvastatin [Crestor] 20 mg PO HS 10/05/23 10/05/23 History dilTIAZem HCL 30 mg PO TID@01,09,17 10/05/23 10/05/23 History Allergies Allergy/AdvReac Type Severity Reaction Status Date / Time adhesive tape Allergy Rash/Hives Verified 10/05/23 15:13 clarithromycin Allergy Rash/Hives Verified 10/05/23 15:13 Penicillins Allergy Unknown Verified 10/05/23 15:13 Childhood Sulfa (Sulfonamide Allergy Unknown Verified 10/05/23 15:13 Antibiotics) Childhood Physical Exam Vitals: Vital Signs Temp Pulse Resp BP Pulse Ox 10/06/23 05:50 74 16 160/63 96 10/06/23 00:45 98.2 F 81 16 158/65 97 10/05/23 21:00 98.1 F 80 16 147/49 100 10/05/23 20:07 76 16 136/59 97 10/05/23 17:40 73 14 137/70 99 10/05/23 12:00 98.1 F 89 18 111/74 98 Intake and Output 10/05/23 10/05/23 10/06/23 14:59 22:59 06:59 Other: Weight 91.172 kg General appearance: The patient is alert, oriented, appears in no acute distress. CPAP on. HET: Head is normocephalic and atraumatic. Conjunctiva pink. Sclera anicteric. Neck: Supple without lymphadenopathy. Abdomen: Soft, nontender, nondistended with bowel sounds. No guarding or rigidity. Extremities: Normal skin color and turgor. No pedal edema Skin: No rashes, no jaundice Neurological: No focal deficits. Alert and oriented. Results CBC & Chem 7: 10/06/23 09:23 10/06/23 09:23 Labs: Abnormal Lab Results - Last 24 Hours (Table) 10/05/23 10/05/23 Range/Units 12:47 12:47 RBC 2.60 L (3.80-5.40) m/uL Hgb 8.0 L (11.4-16.0) gm/dL Hct 24.8 L (34.0-46.0) % Lymphocytes # 0.6 L (1.0-4.8) k/uL Sodium 131 L (137-145) mmol/L Carbon Dioxide 20 L (22-30) mmol/L BUN 39 H (7-17) mg/dL Creatinine 1.77 H (0.52-1.04) mg/dL Glucose 116 H (74-99) mg/dL Assessment and Plan (1) Rectal bleeding Narrative/Plan: 73-year-old female with a recent diagnosis and treatment of bladder cancer who underwent chemotherapy and radiation therapy which she completed in January 2023. She had been experiencing couple days of bright red blood per rectum with bowel movements. Also had 2 episodes where she had passed some small clots. This has subsided over the last 2 days duration. Last colonoscopy [address] Oh which she states was normal. She is not on any anticoagulation and was painless bleeding. Again bleeding has subsided. Possibility proctitis secondary to previous radiation therapy for bladder cancer. Also presented with a normocytic normochromic anemia. Since patient had a full colonoscopy 2 years ago that was normal will recommend doing a flexible sigmoidoscopy later today. Also plan on iron studies. Current Visit: Yes Status: Acute Code(s): K62.5 - HEMORRHAGE OF ANUS AND RECTUM SNOMED Code(s): 02797036 (2) Normochromic normocytic anemia Current Visit: Yes Status: Acute Code(s): D64.9 - ANEMIA, UNSPECIFIED SNOMED Code(s): 61389830 (3) Bladder carcinoma Narrative/Plan: History of bladder carcinoma with chemotherapy and radiation therapy, completed in January 2023 Current Visit: Yes Status: Acute Code(s): C67.9 - MALIGNANT NEOPLASM OF BLADDER, UNSPECIFIED SNOMED Code(s): 741979648 (4) History of radiation therapy Current Visit: Yes Status: Acute Code(s): Z92.3 - PERSONAL HISTORY OF IRRADIATION SNOMED Code(s): 453924582 Plan: 1. Continue symptomatic and supportive care 2. Repeat CBC today, transfuse for hemoglobin less than 7 3. Magnesium citrate ordered 4. Keep n.p.o. except for medications 5. Administer soap suds enema 2 and 1 hours prior to flexible sigmoidoscopy 6. Will plan for flexible sigmoidoscopy today 7. Further recommendations forthcoming following endoscopy Thank you for this consultation. Thank you for allowing us to participate in the care of the patient, the GI service will sign off, gastroenterology will not be available at the hospital this weekend and through next week. If further evaluation by gastroenterology is required the patient will need transfer as per the primary team's discretion. Dr. Michael Renee I agree with the dictator's note, documented as a scribe by Ena Kent.
[2023-10-06] MEDS: SPIRONOLACTONE 25 MG TAB PO SCH (10:46)
[2023-10-06] MEDS: LOSARTAN 50 MG TAB PO SCH (10:46)
[2023-10-06] MEDS: BUMETANIDE 1 MG TAB PO SCH (10:46)
[2023-10-06] MEDS ORDERED: NA PHOS,M-B/NA PHOS,DI-BA 133 ML ENEMA RECTAL ONE ×2 (14:00→15:00)
[2023-10-06] MEDS ORDERED: LIDOCAINE 1% INJ 10MG/ML (20 ML MDV) ONE (16:35)
[2023-10-06] MEDS ORDERED: PROPOFOL 10 MG/ML 20 ML VIAL IV ONE (16:35)
[2023-10-06] MEDS: SODIUM CHLORIDE 0.9% 500 ML 500 ML IV ONE (16:44)
--- NOTE | 2023-10-06 17:02 | P.PCN ---
Date of Procedure: 10/06/23 Procedure(s) Performed: BRIEF HISTORY: Patient is a 73-year-old pleasant white female scheduled for an elective colonoscopy as a part of evaluation of intermittent rectal bleeding for the last few days duration. Hemoglobin was 9 g/dL. Patient was diagnosed with bladder cancer 8 months ago s/p radiation therapy as well as chemotherapy. PROCEDURE PERFORMED: Colonoscopy with biopsy and argon plasma coag. PREOPERATIVE DIAGNOSIS: Intermittent rectal bleeding of 2 weeks duration. IV sedation per Anesthesia. PROCEDURE: After informed consent was obtained, the patient, was brought into the endoscopy unit. IV sedation was administered by Anesthesia under continuous monitoring. Digital rectal examination was normal. Initially the Olympus CF-160 flexible video colonoscope was then inserted in the rectum, gradually advanced into the cecum without any difficulty. Careful examination was performed as the scope was gradually being withdrawn. Ileocecal valve and the appendiceal orifice were visualized and appeared normal. Prep was excellent. Mucosa of the cecum, ascending colon, transverse colon, descending colon, appeared normal. There was patchy rest of erythema with scattered telangiectasias involving the sigmoid colon, and rectum consistent with radiation colitis and biopsies were done from this area. Possible coagulation was performed in some of the telangiectasias which could have been the source of bleeding. Retroflexion was performed in the rectum and no lesions were seen. The patient tolerated the procedure well. IMPRESSION: Mild patchy areas of erythema and telangiectasias involving the proximal rectum and sigmoid colon up to 30 cm from the anal verge consistent with radiation colitis rectal bleeding. S/p possible coagulation as described above Scattered sigmoid diverticulosis No evidence of colorectal neoplasia RECOMMENDATIONS: Findings of this examination were discussed with the patient as well as her family. She was advised to follow-up with the biopsy results. Start regular diet. Monitor CBC daily. Follow-up in the office in 3 to 4 weeks following discharge from the.
[2023-10-06 17:54] LABS: % Iron Saturation 15.11 (12.00-45.00)
--- NOTE | 2023-10-06 19:10 | P.HPIM ---
History of Present Illness H&P Date: 10/05/23 Chief Complaint: Blood per stool This is a pleasant 73-year-old patient, follows with Dr. Roth. Chronic stable medical conditions include atrial fibrillation, CHF, diabetes, hypertension, hyperlipidemia, osteoarthritis, chronic kidney disease, obstructive sleep apnea uses CPAP, left breast cancer with surgery over 10 years ago, CAD with stent about 2 years ago. Patient lives with her . In July patient was admitted to [facility] for about 12 days. With sepsis in the abdomen and also had CHF. Since discharge from the patient started noting a little bit of blood in her stool which is gradually progressed. Denies any abdominal pain. She does take aspirin. Patient is accompanied by her son in the ER. Review of systems: GEN.: Tired EYES: None HEENT: Decreased hearing e NECK: None RESPIRATORY: None CARDIOVASCULAR: None GASTROINTESTINAL: As above GENITOURINARY: None MUSCULOSKELETAL: Joint pain e LYMPHATICS: None HEMATOLOGICAL: None PSYCHIATRY: None NEUROLOGICAL: None Social history: The . Drinks 1 to 2 glasses of wine daily. Smoked a pack a day for about 20 years stopped in 2005. Physical examination: VITAL SIGNS: 98.1, 73, 14, 137 x 70, 99% room air GENERAL: Mild 36.8, sitting edge of bed, awake not in distress. EYES: Pupils equal. Conjunctiva berenice l. HEENT: External appearance of nose and ears normal, oral cavity grossly normal. Some decrease in hearing NECK: JVD not raised; masses not palpable. HEART: First and second heart sounds are normal; no edema. LUNGS: Respiratory rate normal; slightly decreased breath sound n. ABDOMEN: Soft, nontender, liver spleen not palpable, no masses palpable. PSYCH: Answering question appropriately to slightly forgetful l. MUSCULOSKELETAL:No Clubbing/cyanosis;muscles-grossly intact NEUROLOGICAL: Cranial nerves grossly intact; no facial asymmetry, power and sensation grossly intact. LYMPHATICS: No lymph nodes palpable in the axilla and neck INVESTIGATIONS, reviewed in the clinical context: October 05, 2023: White count 5.4 hemoglobin 8 platelets 215 sodium 131 potassium 3.9 BUN 39 creatinine 1.77 Troponin I less than 0.012 EKG tracing personally reviewed by me-normal sinus rhythm. PVC. Assessment plan: -Acute lower GI bleed in the patient's, has been having some lower GI bleed/blood since the latter part of July. Symptoms are: Symptoms slowly wors e. Patient does take Plavix. Hold aspirin. Monitor H&H. GI consulted -Paroxysmal atrial fibrillation currently sinus rhythm Aspirin-hold. Cardizem 30 mg 3 times daily. -Chronic congestive heart failure. EF not known Bumex 1 mg a day Aldactone 25 mg a day -Diabetes mellitus type 2, Diet controlled -Hyperlipidemia Crestor 20 mg nightly -Primary osteoarthritis Tylenol as needed -Chronic kidney disease likely nephrosclerosis Follow renal function -Obstructive sleep apnea uses CPAP -History of left breast cancer about 12 days ago. -Coronary artery disease with stent Aspirin.-Hold Crestor. -Essential hypertension Cozaar 50 mg a day Cardizem 30 mg 3 times daily -Bladder cancer that was removed -Anxiety depression Prozac. Xanax -Obesity BMI 36.8 Weight loss measures -Full code Care discussed with the patient's son. Past Medical History Past Medical History: Atrial Fibrillation, Cancer, Heart Failure, Diabetes Mellitus, Hyperlipidemia, Hypertension, Osteoarthritis (OA), Renal Disease, Sleep Apnea/CPAP/BIPAP Additional Past Medical History / Comment(s): lt breast cancer-*do not use lt arm for b/p,IV's*, new dx. bladder cancer- had surg. heart murmur, SOB w/exertion. has cpap , bladder CA History of Any Multi-Drug Resistant Organisms: None Reported Past Surgical History: Breast Surgery, Section, Cholecystectomy, Heart Catheterization With Stent, Orthopedic Surgery Additional Past Surgical History / Comment(s): lt breast nipple removed, 20 lymph nodes removed lt axillae, hemorroidectomy, melvin. feet surgery, rt great toe screws, bladder tumor removed September @[place] Past Anesthesia/Blood Transfusion Reactions: Previous Problems w/ Anesthesia Additional Past Anesthesia/Blood Transfusion Reaction / Comment(s): pt has anesthesia letter indicating need for glidoscope due to difficult intubation Date of Last Stent Placement:: 2019 Past Psychological History: Anxiety, Depression Smoking Status: Former smoker Past Alcohol Use History: Daily Past Drug Use History: None Reported - Past Family History Father Family Medical History: COPD, Coronary Artery Disease (CAD) Additional Family Medical History / Comment(s): Fluid around heart Mother Family Medical History: No Reported History Medications and Allergies Home Medications Medication Instructions Recorded Confirmed Type Aspirin [Adult Low Dose Aspirin EC] 81 mg PO HS 03/13/20 10/05/23 History FLUoxetine HCL [PROzac] 20 mg PO DAILY 03/13/20 10/05/23 History Nitroglycerin Sl Tabs [Nitrostat] 0.4 mg SUBLINGUAL Q5M PRN #25 tab 03/17/20 10/05/23 Rx Multivitamins, Thera [Multivitamin 1 tab PO DAILY 12/09/22 10/05/23 History (formulary)] Spironolactone [Aldactone] 25 mg PO DAILY 12/14/22 10/05/23 History hydroCHLOROthiazide [Hydrodiuril] 25 mg PO DAILY 12/14/22 10/05/23 History ALPRAZolam [Xanax] 0.5 mg PO TID PRN 10/05/23 10/05/23 History Bumetanide [Bumex] 1 mg PO DAILY 10/05/23 10/05/23 History Calcium Carbonate/Vitamin D3 1 tab PO DAILY 10/05/23 10/05/23 History [Calcium 600 mg-Vit D3 5 mcg (200 unit)] Losartan [Cozaar] 50 mg PO DAILY 10/05/23 10/05/23 History Rosuvastatin [Crestor] 20 mg PO HS 10/05/23 10/05/23 History dilTIAZem HCL 30 mg PO TID@,,17 10/05/23 10/05/23 History Allergies Allergy/AdvReac Type Severity Reaction Status Date / Time adhesive tape Allergy Rash/Hives Verified 10/05/23 15:13 clarithromycin Allergy Rash/Hives Verified 10/05/23 15:13 Penicillins Allergy Unknown Verified 10/05/23 15:13 Childhood Sulfa (Sulfonamide Allergy Unknown Verified 10/05/23 15:13 Antibiotics) Childhood Physical Exam Vitals: Vital Signs Temp Pulse Resp BP Pulse Ox 10/05/23 17:40 73 14 137/70 99 10/05/23 12:00 98.1 F 89 18 111/74 98 Intake and Output 10/05/23 10/05/23 10/05/23 06:59 14:59 22:59 Other: Weight 91.172 kg Results CBC & Chem 7: 10/06/23 09:23 10/06/23 09:23 Labs: Abnormal Lab Results - Last 24 Hours (Table) 06/06/24 06/06/24 Range/Units 12:47 12:47 RBC 2.60 L (3.80-5.40) m/uL Hgb 8.0 L (11.4-16.0) gm/dL Hct 24.8 L (34.0-46.0) % Lymphocytes # 0.6 L (1.0-4.8) k/uL Sodium 131 L (137-145) mmol/L Carbon Dioxide 20 L (22-30) mmol/L BUN 39 H (7-17) mg/dL Creatinine 1.77 H (0.52-1.04) mg/dL Glucose 116 H (74-99) mg/dL
--- NOTE | 2023-10-06 19:16 | P.PN ---
Progress Note - Text Progress Note Date: 10/06/23 Chief Complaint: Blood per stool This is a pleasant 73-year-old patient, follows with Dr. Roth. Chronic stable medical conditions include atrial fibrillation, CHF, diabetes, hypertension, hyperlipidemia, osteoarthritis, chronic kidney disease, obstructive sleep apnea uses CPAP, left breast cancer with surgery over 10 years ago, CAD with stent about 2 years ago. Patient lives with her . In July patient was admitted to [facility] for about 12 days. With sepsis in the abdomen and also had CHF. Since discharge from the patient started noting a little bit of blood in her stool which is gradually progressed. Denies any abdominal pain. She does take aspirin. Patient is accompanied by her son in the ER. October 05: Saw the patient in the ER later this afternoon. Was pending colonoscopy. Results showed: Mild patchy areas of erythema and telangiectasias involving the proximal rectum and sigmoid colon up to 30 cm from the anal verge consistent with radiation colitis rectal bleeding. Scattered sigmoid diverticulosis. Biopsy was done. Some coagulation was done with some of the telangiectasis. Normal episodes of bleeding since admission. Patient diet will be resumed. Repeat CBC in the morning. Active Medications Alprazolam (Alprazolam 0.5 Mg Tab) 0.5 mg PO TID PRN PRN Reason: Anxiety Atorvastatin Calcium (Atorvastatin 40 Mg Tab) 40 mg PO HS [facility] Last Admin: 10/05/23 20:58 Dose: 40 mg Bumetanide (Bumetanide 1 Mg Tab) 1 mg PO DAILY [facility] Last Admin: 10/06/23 10:46 Dose: 1 mg Diltiazem HCl (Diltiazem Oral 30 Mg Tab) 30 mg PO TID@,, [facility] Last Admin: 10/06/23 09:37 Dose: 30 mg Fluoxetine HCl (Fluoxetine Hcl 20 Mg Cap) 20 mg PO DAILY [facility] Last Admin: 10/06/23 09:07 Dose: 20 mg Sodium Chloride (Saline 0.9%) 1,000 mls @ 20 mls/hr IV .Q24H [facility] Last Admin: 10/06/23 15:07 Dose: 20 mls/hr Losartan Potassium (Losartan 50 Mg Tab) 50 mg PO DAILY [facility] Last Admin: 10/06/23 10:46 Dose: 50 mg Morphine Sulfate (Morphine Sulfate 4 Mg/Ml Syringe) 4 mg IV Q4HR PRN PRN Reason: Severe Pain (Scale 7 to 10) Multivitamins (Multivitamins, Thera 1 Each Tab) 1 each PO DAILY [facility] Last Admin: 10/06/23 09:07 Dose: 1 each Naloxone HCl (Naloxone 0.4 Mg/Ml 1 Ml Vial) 0.2 mg IV Q2M PRN PRN Reason: Opioid Reversal Nitroglycerin (Nitroglycerin Sl Tabs 0.4 Mg Tab) 0.4 mg SUBLINGUAL Q5M PRN PRN Reason: Chest Pain Ondansetron HCl (Ondansetron 4 Mg/2 Ml Vial) 4 mg IVP Q8HR PRN PRN Reason: Nausea And Vomiting Spironolactone (Spironolactone 25 Mg Tab) 25 mg PO DAILY [facility] Last Admin: 10/06/23 10:46 Dose: 25 mg Social history: The . Drinks 1 to 2 glasses of wine daily. Smoked a pack a day for about 20 years stopped in 2005. Physical examination: VITAL SIGNS: 98.1, 97, 18, 1 one 9 x 67, 100% room air GENERAL: Sitting up in chair, comfortable EYES: Pupils equal. Conjunctiva berenice l. HEENT: External appearance of nose and ears normal, oral cavity grossly normal. Some decrease in hearing NECK: JVD not raised; masses not palpable. HEART: First and second heart sounds are normal; no edema. LUNGS: Respiratory rate normal; slightly decreased breath sound n. ABDOMEN: Soft, nontender, liver spleen not palpable, no masses palpable. PSYCH: Answering question appropriately to slightly forgetful l. MUSCULOSKELETAL:No Clubbing/cyanosis;muscles-grossly intact INVESTIGATIONS, reviewed in the clinical context: Colonoscopy: Radiation colitis October 05: White count 6 hemoglobin 8.4 potassium 4.36 creatinine 1.59 October 05, 2023: White count 5.4 hemoglobin 8 platelets 215 sodium 131 potassium 3.9 BUN 39 creatinine 1.77 Troponin I less than 0.012 EKG tracing personally reviewed by me-normal sinus rhythm. PVC. 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 Coagulation was done to some of the telangiectasia Seen by Dr. Michael Renee from GI. Resume diet today -Paroxysmal atrial fibrillation currently sinus rhythm Aspirin-hold. Cardizem 30 mg 3 times daily. -Chronic congestive heart failure. EF not known Bumex 1 mg a day Aldactone 25 mg a day -Sigmoid diverticulosis -Diabetes mellitus type 2, Diet controlled -Hyperlipidemia Crestor 20 mg nightly -Primary osteoarthritis Tylenol as needed -Chronic kidney disease stage III likely nephrosclerosis Follow renal function -Obstructive sleep apnea uses CPAP -History of left breast cancer about 12 days ago. -Coronary artery disease with stent Aspirin.-Hold Crestor. -Essential hypertension Cozaar 50 mg a day Cardizem 30 mg 3 times daily -Bladder cancer that was removed -Anxiety depression Prozac. Xanax -Obesity BMI 36.8 Weight loss measures -Full code To be resumed. Repeat CBC in the morning. See patient how he does overnight. Past Medical History Past Medical History: Atrial Fibrillation, Cancer, Heart Failure, Diabetes Mellitus, Hyperlipidemia, Hypertension, Osteoarthritis (OA), Renal Disease, Sleep Apnea/CPAP/BIPAP Additional Past Medical History / Comment(s): lt breast cancer-*do not use lt arm for b/p,IV's*, new dx. bladder cancer- had surg. heart murmur, SOB w/exertion. has cpap , bladder CA History of Any Multi-Drug Resistant Organisms: None Reported Past Surgical History: Breast Surgery, Section, Cholecystectomy, Heart Catheterization With Stent, Orthopedic Surgery Additional Past Surgical History / Comment(s): lt breast nipple removed, 20 lymph nodes removed lt axillae, hemorroidectomy, melvin. feet surgery, rt great toe screws, bladder tumor removed September @[place] Past Anesthesia/Blood Transfusion Reactions: Previous Problems w/ Anesthesia Additional Past Anesthesia/Blood Transfusion Reaction / Comment(s): pt has anes thesia letter indicating need for glidoscope due to difficult intubation Date of Last Stent Placement:: 2019 Past Psychological History: Anxiety, Depression Smoking Status: Former smoker Past Alcohol Use History: Daily Past Drug Use History: None Reported
[2023-10-06] MEDS: ALPRAZolam 0.5 MG TAB PO PRN (19:38)
[2023-10-06] MEDS: MORPHINE SULFATE 4 MG/ML SYRINGE IV PRN (19:39)
[2023-10-07 07:47] VITALS: TEMP 98.4
--- NOTE | 2023-10-07 12:50 | P.CRDCN ---
History of Present Illness Consult date: 10/07/23 Chief complaint: Gastrointestinal bleeding History of present illness: The patient is a pleasant 73-year-old female patient with a past medical history significant for CAD with prior stenting of the RCA in [address] Peace regularly as well as questionable history of atrial fibrillation currently she is wearing an event monitor as well as hypertension and dyslipidemia and history of bladder cancer status postchemotherapy and radiation therapy. She presented to the hospital complaining of blood per rectum. She underwent further investigation including hemoglobin came in to be low around 8. She underwent subsequently colonoscopy which showed evidence of radiation colitis. We consulted to see the patient because of atrial fibrillation history. The patient underwent an EKG and that showed sinus mechanism. She did not have any episode of atrial fibrillation through her hospital stay. She is asymptomatic from the cardiac standpoint of view at this point and reports no heart racing or fluttering or dizziness or lightheadedness or any symptoms of chest pain or chest discomfort or shortness of breath. As an outpatient she was not on any anticoagulation but as a mention she is currently on event monitor through our office for further evaluation of possible atrial fibrillation but she stated that she was informed in [place] that she had atrial fibrillation. No documentation of that. The only antiplatelet she was at home was aspirin. The examination is remarkable for regular rhythm with a soft systolic murmur at the right upper sternal border and clear breathing sounds bilaterally and no edema was noted. 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 Peace after the event monitor She might benefit from left atrial appendage closure if the monitor documented atrial fibrillation No need for any further cardiac intervention at this point Past Medical History Past Medical History: Atrial Fibrillation, Cancer, Heart Failure, Diabetes Mellitus, Hyperlipidemia, Hypertension, Osteoarthritis (OA), Renal Disease, Sleep Apnea/CPAP/BIPAP Additional Past Medical History / Comment(s): lt breast cancer-*do not use lt arm for b/p,IV's*, new dx. bladder cancer- had surg. heart murmur, SOB w/exertion. has cpap , bladder CA History of Any Multi-Drug Resistant Organisms: None Reported Past Surgical History: Breast Surgery, Section, Cholecystectomy, Heart Catheterization With Stent, Orthopedic Surgery Additional Past Surgical History / Comment(s): lt breast nipple removed, 20 lymph nodes removed lt axillae, hemorroidectomy, melvin. feet surgery, rt great toe screws, bladder tumor removed September @ Past Anesthesia/Blood Transfusion Reactions: Previous Problems w/ Anesthesia Additional Past Anesthesia/Blood Transfusion Reaction / Comment(s): pt has anesthesia letter indicating need for glidoscope due to difficult intubation Date of Last Stent Placement:: 2019 Smoking Status: Never smoker - Past Family History Father Family Medical History: COPD, Coronary Artery Disease (CAD) Additional Family Medical History / Comment(s): Fluid around heart Mother Family Medical History: No Reported History Medications and Allergies Home Medications Medication Instructions Recorded Confirmed Type Aspirin [Adult Low Dose Aspirin EC] 81 mg PO HS 03/13/20 10/05/23 History FLUoxetine HCL [PROzac] 20 mg PO DAILY 03/13/20 10/05/23 History Nitroglycerin Sl Tabs [Nitrostat] 0.4 mg SUBLINGUAL Q5M PRN #25 tab 03/17/20 10/05/23 Rx Multivitamins, Thera [Multivitamin 1 tab PO DAILY 12/09/22 10/05/23 History (formulary)] Spironolactone [Aldactone] 25 mg PO DAILY 12/14/22 10/05/23 History hydroCHLOROthiazide [Hydrodiuril] 25 mg PO DAILY 12/14/22 10/05/23 History ALPRAZolam [Xanax] 0.5 mg PO TID PRN 10/05/23 10/05/23 History Bumetanide [BUMEX] 1 mg PO DAILY 10/05/23 10/05/23 History Calcium Carbonate/Vitamin D3 1 tab PO DAILY 10/05/23 10/05/23 History [Calcium 600 mg-Vit D3 5 mcg (200 unit)] Losartan [Cozaar] 50 mg PO DAILY 10/05/23 10/05/23 History Rosuvastatin [Crestor] 20 mg PO HS 10/05/23 10/05/23 History dilTIAZem HCL 30 mg PO TID@,,10/05/23 10/05/23 History Allergies Allergy/AdvReac Type Severity Reaction Status Date / Time adhesive tape Allergy Rash/Hives Verified 10/05/23 15:13 clarithromycin Allergy Rash/Hives Verified 10/05/23 15:13 Penicillins Allergy Unknown Verified 10/05/23 15:13 Childhood Sulfa (Sulfonamide Allergy Unknown Verified 10/05/23 15:13 Antibiotics) Childhood Physical Exam Vitals: Vital Signs Temp Pulse Pulse Resp BP Pulse Ox 10/07/23 07:45 98.4 F 84 18 113/62 99 10/07/23 02:00 100.5 F H 93 16 114/66 95 10/06/23 20:00 98.3 F 76 16 117/68 98 10/06/23 18:23 98.1 F 97 18 119/67 100 10/06/23 17:45 85 16 146/63 100 10/06/23 17:20 79 16 140/62 100 10/06/23 17:06 97.7 F 83 16 128/58 99 Intake and Output 10/06/23 10/07/23 10/07/23 22:59 06:59 14:59 Intake Total 300 320 Balance 300 320 Intake: IV 300 Intake, IV Titration 120 Amount Sodium Chloride 0.9% 1, 120 000 ml @ 20 mls/hr IV . Q24H [facility] Rx#:[id number] Oral 200 Other: Voiding Method Toilet # Voids 1 Weight 91.172 kg Results 10/06/23 09:23 10/06/23 09:23 Current Medications Generic Name Dose Route Start Last Admin Trade Name Freq PRN Reason Stop Dose Admin Alprazolam 0.5 mg 10/05/23 18:30 10/06/23 19:38 Alprazolam 0.5 Mg Tab PO 0.5 mg TID PRN Administration Anxiety Atorvastatin Calcium 40 mg 10/05/23 21:00 10/06/23 19:38 Atorvastatin 40 Mg Tab PO Not Given HS [facility] Bumetanide 1 mg 10/06/23 09:00 10/07/23 09:53 Bumetanide 1 Mg Tab PO 1 mg DAILY [facility] Administration Diltiazem HCl 30 mg 10/06/23 01:00 10/07/23 09:53 Diltiazem Oral 30 Mg Tab PO 30 mg TID@01,09,17 [facility] Administration Fluoxetine HCl 20 mg 10/06/23 09:00 10/07/23 08:54 Fluoxetine Hcl 20 Mg Cap PO 20 mg DAILY [facility] Administration Sodium Chloride 1,000 mls @ 20 mls/hr 10/05/23 15:30 10/06/23 15:07 Saline 0.9% IV 20 mls/hr .Q24H [facility] Administration Losartan Potassium 50 mg 10/06/23 09:00 10/07/23 08:54 Losartan 50 Mg Tab PO 50 mg DAILY [facility] Administration Morphine Sulfate 4 mg 10/05/23 15:23 10/06/23 19:39 Morphine Sulfate 4 Mg/Ml Syringe IV 4 mg Q4HR PRN Administration Severe Pain (Scale 7 to 10) Multivitamins 1 each 10/06/23 09:00 10/07/23 08:54 Multivitamins, Thera 1 Each Tab PO 1 each DAILY [facility] Administration Naloxone HCl 0.2 mg 10/05/23 15:23 Naloxone 0.4 Mg/Ml 1 Ml Vial IV Q2M PRN Opioid Reversal Nitroglycerin 0.4 mg 10/05/23 19:14 Nitroglycerin Sl Tabs 0.4 Mg Tab SUBLINGUAL Q5M PRN Chest Pain Ondansetron HCl 4 mg 10/05/23 15:23 Ondansetron 4 Mg/2 Ml Vial IVP Q8HR PRN Nausea And Vomiting Spironolactone 25 mg 10/06/23 09:00 10/07/23 08:54 Spironolactone 25 Mg Tab PO 25 mg DAILY [facility] Administration Intake and Output 10/06/23 10/07/23 10/07/23 22:59 06:59 14:59 Intake Total 300 320 Balance 300 320 Intake: IV 300 Intake, IV Titration 120 Amount Sodium Chloride 0.9% 1, 120 000 ml @ 20 mls/hr IV . Q24H [facility] Rx#:[id number] Oral 200 Other: Voiding Method Toilet # Voids 1 Weight 91.172 kg 10/06/23 09:23 10/06/23 09:23
[2023-10-07 13:22] VITALS: BP 91/48; PULSE 81; RESP 19
--- NOTE | 2023-10-07 21:21 | P.DS ---
Providers Date of admission: 10/05/23 15:24 Expected date of discharge: 10/07/23 Attending physician: René Bosch Consults: 10/05/23 15:23 Consult Physician Routine Consulting Provider: Dorota Renee Consult Reason/Comments: gib Do you want consulting provider notified?: Yes 10/06/23 15:48 Consult Physician Routine Consulting Provider: Tonny Renee Consult Reason/Comments: CAD Do you want consulting provider notified?: Yes Primary care physician: Isiah Roth [facility] Course: Chief Complaint: Blood per stool This is a pleasant 73-year-old patient, follows with Dr. Roth. Chronic stable medical conditions include atrial fibrillation, CHF, diabetes, hypertension, hyperlipidemia, osteoarthritis, chronic kidney disease, obstructive sleep apnea uses CPAP, left breast cancer with surgery over 10 years ago, CAD with stent about 2 years ago. Patient lives with her . In July patient was admitted to [facility] for about 12 days. With sepsis in the abdomen and also had CHF. Since discharge from the patient started noting a little bit of blood in her stool which is gradually progressed. Denies any abdominal pain. She does take aspirin. Patient is accompanied by her son in the ER. October 05: Saw the patient in the ER later this afternoon. Was pending colonoscopy. Results showed: Mild patchy areas of erythema and telangiectasias involving the proximal rectum and sigmoid colon up to 30 cm from the anal verge consistent with radiation colitis rectal bleeding. Scattered sigmoid diverticulosis. Biopsy was done. Some coagulation was done with some of the telangiectasis. Normal episodes of bleeding since admission. Patient diet will be resumed. Repeat CBC in the morning. October 06: Patient doing well. No further bleeding. Discussed with patient. Also discussed the chance of possible recurrence given the nature of the disease process. Patient will follow-up with Dr. Michael Renee outpatient. Resume Plavix. Questions answered Discussion and discharge planning more than 35 minutes Social history: The . Drinks 1 to 2 glasses of wine daily. Smoked a pack a day for about 20 years stopped in 2005. Physical examination: VITAL SIGNS: 98.4, 81, 19, 91/48, 98% room air GENERAL:, But able EYES: Pupils equal. Conjunctiva berenice l. HEENT: External appearance of nose and ears normal, oral cavity grossly normal. Some decrease in hearing NECK: JVD not raised; masses not palpable. HEART: First and second heart sounds are normal; no edema. LUNGS: Respiratory rate normal; slightly decreased breath sound n. ABDOMEN: Soft, nontender, liver spleen not palpable, no masses palpable. PSYCH: Answering question appropriately to slightly forgetful l. MUSCULOSKELETAL:No Clubbing/cyanosis;muscles-grossly intact INVESTIGATIONS, reviewed in the clinical context: Colonoscopy: Radiation colitis October 05: White count 6 hemoglobin 8.4 potassium 4.36 creatinine 1.59 October 05, 2023: White count 5.4 hemoglobin 8 platelets 215 sodium 131 potassium 3.9 BUN 39 creatinine 1.77 Troponin I less than 0.012 EKG tracing personally reviewed by me-normal sinus rhythm. PVC. 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 Coagulation was done to some of the telangiectasia Seen by Dr. Michael Renee from GI.-Follow-up outpatient Resume diet today -Paroxysmal atrial fibrillation currently sinus rhythm Aspirin- Cardizem 30 mg 3 times daily. -Chronic congestive heart failure. EF not known Bumex 1 mg a day Aldactone 25 mg a day -Sigmoid diverticulosis -Diabetes mellitus type 2, Diet controlled -Hyperlipidemia Crestor 20 mg nightly -Primary osteoarthritis Tylenol as needed -Chronic kidney disease stage III likely nephrosclerosis Follow renal function -Obstructive sleep apnea uses CPAP -History of left breast cancer about 12 days ago. -Coronary artery disease with stent Aspirin.-Hold Crestor. -Essential hypertension Cozaar 50 mg a day Cardizem 30 mg 3 times daily -Bladder cancer that was removed -Anxiety depression Prozac. Xanax -Obesity BMI 36.8 Weight loss measures -Full code Disposition: Home Past Medical History Past Medical History: Atrial Fibrillation, Cancer, Heart Failure, Diabetes Mellitus, Hyperlipidemia, Hypertension, Osteoarthritis (OA), Renal Disease, Sleep Apnea/CPAP/BIPAP Additional Past Medical History / Comment(s): lt breast cancer-*do not use lt arm for b/p,IV's*, new dx. bladder cancer- had surg. heart murmur, SOB w/exertion. has cpap , bladder CA History of Any Multi-Drug Resistant Organisms: None Reported Past Surgical History: Breast Surgery, Section, Cholecystectomy, Heart Catheterization With Stent, Orthopedic Surgery Additional Past Surgical History / Comment(s): lt breast nipple removed, 20 lymph nodes removed lt axillae, hemorroidectomy, melvin. feet surgery, rt great toe screws, bladder tumor removed September @[place] Past Anesthesia/Blood Transfusion Reactions: Previous Problems w/ Anesthesia Additional Past Anesthesia/Blood Transfusion Reaction / Comment(s): pt has anesthesia letter indicating need for glidoscope due to difficult intubation Date of Last Stent Placement:: 2019 Past Psychological History: Anxiety, Depression Smoking Status: Former smoker Past Alcohol Use History: Daily Past Drug Use History: None Reported Plan - Discharge Summary Discharge Rx Participant: Yes New Discharge Prescriptions: Continue Aspirin [Adult Low Dose Aspirin EC] 81 mg PO HS FLUoxetine HCL [PROzac] 20 mg PO DAILY Nitroglycerin Sl Tabs [Nitrostat] 0.4 mg SUBLINGUAL Q5M PRN #25 tab PRN Reason: Chest Pain Multivitamins, Thera [Multivitamin (formulary)] 1 tab PO DAILY hydroCHLOROthiazide [Hydrodiuril] 25 mg PO DAILY Bumetanide [BUMEX] 1 mg PO DAILY Rosuvastatin [Crestor] 20 mg PO HS Spironolactone [Aldactone] 25 mg PO DAILY dilTIAZem HCL 30 mg PO TID@ Calcium Carbonate/Vitamin D3 [Calcium 600 mg-Vit D3 5 mcg (200 unit)] 1 tab PO DAILY Losartan [Cozaar] 50 mg PO DAILY ALPRAZolam [Xanax] 0.5 mg PO TID PRN PRN Reason: Anxiety Discharge Medication List Aspirin [Adult Low Dose Aspirin EC] 81 mg PO HS 03/13/20 [History] FLUoxetine HCL [PROzac] 20 mg PO DAILY 03/13/20 [History] Nitroglycerin Sl Tabs [Nitrostat] 0.4 mg SUBLINGUAL Q5M PRN #25 tab 03/17/20 [Rx] Multivitamins, Thera [Multivitamin (formulary)] 1 tab PO DAILY 12/09/22 [History] Spironolactone [Aldactone] 25 mg PO DAILY 12/14/22 [History] hydroCHLOROthiazide [Hydrodiuril] 25 mg PO DAILY 12/14/22 [History] ALPRAZolam [Xanax] 0.5 mg PO TID PRN 10/05/23 [History] Bumetanide [BUMEX] 1 mg PO DAILY 10/05/23 [History] Calcium Carbonate/Vitamin D3 [Calcium 600 mg-Vit D3 5 mcg (200 unit)] 1 tab PO DAILY 10/05/23 [History] Losartan [Cozaar] 50 mg PO DAILY 10/05/23 [History] Rosuvastatin [Crestor] 20 mg PO HS 10/05/23 [History] dilTIAZem HCL 30 mg PO TID@01,09,17 10/05/23 [History] Follow up Appointment(s)/Referral(s): Isiah Roth MD [Primary Care Provider] - 1-2 days (please call the office on monday10/09/23 to make your appointment) Dorota Renee MD [STAFF PHYSICIAN] - 3 Weeks (please call the office on monday10/09/23 to make your appointment) Patient Instructions/Handouts: Gastrointestinal Bleeding (ED) Discharge Disposition: HOME SELF-CARE
== END 2023-10-07 13:40 | disposition home or self-care (01) ==
LOC: EC 11:35 → 5NMEDONC 15:24 → 3SCARD 17:58 → 5NMEDONC 10-06 16:37
PROVIDERS: ADMIT Hospitalist; ATTEND Hospitalist
DX: K62.5 Hemorrhage of anus and rectum (principal); K52.0 Gastroenteritis and colitis due to radiation; I48.0 Paroxysmal atrial fibrillation; I13.0 Hypertensive heart and chronic kidney disease with heart failure and stage 1 through stage 4 chronic kidney disease, or unspecified chronic kidney disease; I50.9 Heart failure, unspecified; E11.22 Type 2 diabetes mellitus with diabetic chronic kidney disease; N18.9 Chronic kidney disease, unspecified; E78.5 Hyperlipidemia, unspecified; G47.33 Obstructive sleep apnea (adult) (pediatric); Z85.3 Personal history of malignant neoplasm of breast; K57.30 Diverticulosis of large intestine without perforation or abscess without bleeding; Z87.891 Personal history of nicotine dependence; Z92.21 Personal history of antineoplastic chemotherapy; Z85.51 Personal history of malignant neoplasm of bladder; Z95.5 Presence of coronary angioplasty implant and graft; Z92.3 Personal history of irradiation; Z82.5 Family history of asthma and other chronic lower respiratory diseases; Z82.49 Family history of ischemic heart disease and other diseases of the circulatory system; Z79.82 Long term (current) use of aspirin; Z79.02 Long term (current) use of antithrombotics/antiplatelets
CPT/HCPCS: 96374; 99285; 36415; 86900; 86901; 88305; 80053 ×2; 82728; 82140; 83540; 83550; 83690; 83735 ×2; 84100; 84484; 85025 ×2; 85730; 86850; 45382; 45380; G0378 ×5; J2270; J2001; J2704; C9113

== ENCOUNTER 2023-11-07 10:48 | Day surgery (SDC) | payer MEDICARE ==
[2023-11-07] MEDS: LACTATED RINGERS 1,000 ML IV SCH (12:00)
[2023-11-07] MEDS: IV FLUID CONTINUATION 1,000 ML IV ONE (12:00)
[2023-11-07 12:07] VITALS: RESP 16; TEMP 98.1
[2023-11-07] MEDS ORDERED: PROPOFOL 10 MG/ML 20 ML VIAL IV ONE (12:12)
--- NOTE | 2023-11-07 12:27 | P.PCN ---
Date of Procedure: 11/07/23 Procedure(s) Performed: BRIEF HISTORY: Patient is a 73-year-old pleasant white female scheduled for an elective sigmoidoscopy as a part of evaluation of intermittent rectal bleeding. 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 Because of recurrent anemia with a hemoglobin of 5.5 requiring blood transfusion and persistent rectal bleeding she is scheduled for repeat flexible sigmoidoscopy with argon plasma coagulation PROCEDURE PERFORMED: Flexible sigmoidoscopy with argon plasma coagulation PREOPERATIVE DIAGNOSIS: Rectal bleeding and severe symptomatic anemia. IV sedation per Anesthesia. PROCEDURE: After informed consent was obtained, the patient, was brought into the endoscopy unit. IV sedation was administered by Anesthesia under continuous monitoring. Digital rectal examination was normal. Initially the Olympus CF-160 flexible video colonoscope was then inserted in the rectum, gradually advanced into the sigmoid colon. There was erythema of the sigmoid colon with scattered telangiectasias noted consistent with radiation colitis. The distal sigmoid colon appeared normal. In the proximal rectum there were multiple scattered telangiectasias along with erythema consistent with radiation proctitis and argon possible coagulation was performed with coagulation and good hemostasis. The distal rectum appeared normal. Scattered sigmoid diverticulosis seen. Ariella ent tolerated the procedure well. 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 RECOMMENDATIONS: Findings of this examination were discussed with the patient as well as her family. She was advised to follow-up in the office in 3 to 4 weeks. Continue with iron supplements..
[2023-11-07 13:10] VITALS: BP 150/71; PULSE 94
== END 2023-11-07 13:33 | disposition home or self-care (01) ==
LOC: ORWHC2ENDO 10:48
PROVIDERS: ATTEND Internal Medicine Gastroenterology
DX: K52.0 Gastroenteritis and colitis due to radiation (principal); K57.30 Diverticulosis of large intestine without perforation or abscess without bleeding; D64.9 Anemia, unspecified; I11.0 Hypertensive heart disease with heart failure; I48.91 Unspecified atrial fibrillation; I50.9 Heart failure, unspecified; E78.5 Hyperlipidemia, unspecified; G47.33 Obstructive sleep apnea (adult) (pediatric); F41.9 Anxiety disorder, unspecified; F32.A Depression, unspecified; Z87.891 Personal history of nicotine dependence; Z88.0 Allergy status to penicillin; Z88.8 Allergy status to other drugs, medicaments and biological substances; Z88.2 Allergy status to sulfonamides; Z79.01 Long term (current) use of anticoagulants; Z79.899 Other long term (current) drug therapy; Y84.2 Radiological procedure and radiotherapy as the cause of abnormal reaction of the patient, or of later complication, without mention of misadventure at the time of the procedure
CPT/HCPCS: 45382; J2704

== ENCOUNTER → 2024-01-12 | Outpatient (CLI) | payer MEDICARE ==
--- NOTE | 2024-01-13 06:54 | MR ---
EXAMINATION TYPE: MR pelvis wo/w con DATE OF EXAM: 01/12/2024 9:18 PM CLINICAL INDICATION: Female, 74 years old with history of C20 PELVIS W/WO CONTRAST; PHH, rectal cance r, chronic bleeding. whole pelvis screening COMPARISON: None TECHNIQUE: Triplane multisequence imaging was performed of the pelvis. IV Contrast: 9 cc Gadavist FINDINGS: Reproductive: Vagina: Unremarkable. Uterus: The uterus is anteverted in position. Uterus measures 6.9 x 2.2 x 3.3 cm. Cm. The endometrium and junctional zone are within normal limits. Multiple nabothian cysts are seen in the lower uterin e segment. Ovaries: Follicular changes are noted to the ovaries. Bladder: The bowel appears without evidence of wall thickening. No evidence for obstruction. Few scat tered colonic diverticula. Bowel: Unremarkable as visualized. Peritoneum: A small amount of free fluid in the pelvis. Lymph nodes: No evidence of adenopathy. Vasculature: Unremarkable. Musculoskeletal: Bone marrow signal is within normal signal intensity. Abdominal wall/soft tissues: Ventral wall umbilical fat-containing hernia. IMPRESSION: No lymphadenopathy or rectal mass definitively visualized. No evidence for bowel wall thickening. No evidence for colitis/proctitis.
== END | disposition home or self-care (01) ==
LOC: RADMRIMAIN 20:00
PROVIDERS: ATTEND Internal Medicine Hematology & Oncology
DX: C20 Malignant neoplasm of rectum (principal)
CPT/HCPCS: 72197

== ENCOUNTER 2024-01-30 09:51 | Observation (INO) | payer MEDICARE ==
--- NOTE | 2024-01-30 10:44 | ED ---
General Adult HPI - General Chief complaint: Recheck/Abnormal Lab/Rx Stated complaint: Abn Labs Time Seen by Provider: 01/30/24 10:35 Source: patient, RN notes reviewed, old records reviewed Mode of arrival: wheelchair Limitations: no limitations - History of Present Illness Initial comments: This is a 74-year-old female who presents to the emergency department with a longstanding history of anemia. Patient had bladder cancer with radiation and after that she started having GI bleeds she had is had the area cauterized in her colon a couple of times. Patient states she has been getting 2 units of blood every week for the last few months. Patient states she is not feeling any different than normal but she is short of breath when she walks which is typical. Patient states she only knows her hemoglobin is lower because she went to get transfused and they chata her blood and her hemoglobin was 4.4 so they sent to the emergency department. Patient denies any chest pain. Patient denies any heavier bleeding than normal but she states she continues to bleed all the time. - Related Data Home Medications Medication Instructions Recorded Confirmed Aspirin [Adult Low Dose Aspirin EC] 81 mg PO HS 03/13/20 01/23/24 FLUoxetine HCL [PROzac] 20 mg PO DAILY 03/13/20 01/23/24 Multivitamins, Thera [Multivitamin 1 tab PO DAILY 12/09/22 01/23/24 (formulary)] Spironolactone [Aldactone] 25 mg PO DAILY 12/14/22 01/23/24 ALPRAZolam [Xanax] 0.5 mg PO TID PRN 10/05/23 01/23/24 Bumetanide [BUMEX] 1 mg PO DAILY 10/05/23 01/23/24 Calcium Carbonate/Vitamin D3 1 tab PO DAILY 10/05/23 01/23/24 [Calcium 600 mg-Vit D3 5 mcg (200 unit)] Losartan [Cozaar] 50 mg PO DAILY 10/05/23 01/23/24 Rosuvastatin [Crestor] 20 mg PO HS 10/05/23 01/23/24 dilTIAZem HCL 30 mg PO TID@,,10/05/23 01/23/24 amLODIPine BESYLATE 5 mg PO DAILY 11/01/23 01/23/24 Previous Rx's Medication Instructions Recorded Nitroglycerin Sl Tabs [Nitrostat] 0.4 mg SUBLINGUAL Q5M PRN #25 tab 03/17/20 Allergies Allergy/AdvReac Type Severity Reaction Status Date / Time adhesive tape Allergy Rash/Hives Verified 01/30/24 10:00 clarithromycin Allergy Rash/Hives Verified 01/30/24 10:00 Penicillins Allergy Unknown Verified 01/30/24 10:00 Childhood Sulfa (Sulfonamide Allergy Unknown Verified 01/30/24 10:00 Antibiotics) Childhood Review of Systems ROS Statement: Those systems with pertinent positive or pertinent negative responses have been documented in the HPI. ROS Other: All systems not noted in ROS Statement are negative. Past Medical History Past Medical History: Atrial Fibrillation, Cancer, Heart Failure, Diabetes Mellitus, Hyperlipidemia, Hypertension, Osteoarthritis (OA), Renal Disease, Sleep Apnea/CPAP/BIPAP Additional Past Medical History / Comment(s): lt breast cancer-*do not use lt arm for b/p,IV's*, new dx. bladder cancer- had surg. heart murmur, SOB w/exertion. has cpap , bladder CA History of Any Multi-Drug Resistant Organisms: None Reported Past Surgical History: Breast Surgery, Section, Cholecystectomy, Heart Catheterization With Stent, Orthopedic Surgery Additional Past Surgical History / Comment(s): lt breast nipple removed, 20 lymph nodes removed lt axillae, hemorroidectomy, melvin. feet surgery, rt great toe screws, bladder tumor removed September Past Anesthesia/Blood Transfusion Reactions: Previous Problems w/ Anesthesia Additional Past Anesthesia/Blood Transfusion Reaction / Comment(s): pt has anesthesia letter indicating need for glidoscope due to difficult intubation Date of Last Stent Placement:: 2019 Past Psychological History: Anxiety, Depression Smoking Status: Former smoker - Past Family History Father Family Medical History: COPD, Coronary Artery Disease (CAD) Additional Family Medical History / Comment(s): Fluid around heart Mother Family Medical History: No Reported History General Exam - General Exam Comments Initial Comments: GENERAL: Patient is well-developed and well-nourished. Patient is nontoxic and well- hydrated and is in mild e distress. ENT: Neck is soft and supple. No significant lymphadenopathy is noted. Oropharynx is clear. Moist mucous membranes. Neck has full range of motion without eliciting any pain. EYES: The sclera were anicteric and conjunctiva were pink and moist. Extraocular movements were intact and pupils were equal round and reactive to light. Eyelids were unremarkable. PULMONARY: Unlabored respirations. Good breath sounds bilaterally. No audible rales rhonchi or wheezing was noted. CARDIOVASCULAR: There is a regular rate and rhythm without any murmurs gallops or rubs. ABDOMEN: Soft and nontender with normal bowel sounds. SKIN: Patient's skin is pale NEUROLOGIC: Patient is alert and oriented x3. Cranial nerves II through XII are grossly intact. Motor and sensory are also intact. Normal speech, volume and content. Symmetrical smile. MUSCULOSKELETAL: Normal extremities with adequate strength and full range of motion. LYMPHATICS: No significant lymphadenopathy is noted PSYCHIATRIC: Normal psychiatric evaluation. Limitations: no limitations Course Vital Signs 01/30/24 01/30/24 01/30/24 09:56 11:50 13:17 Temperature 98.4 F 98.6 F Pulse Rate 96 78 79 Respiratory 18 20 18 Rate Blood Pressure 133/47 138/73 139/51 O2 Sat by Pulse 100 98 98 Oximetry 01/30/24 01/30/24 01/30/24 13:26 13:39 13:59 Temperature 98.3 F 98.7 F 98.7 F Pulse Rate 91 73 75 Respiratory 20 18 18 Rate Blood Pressure 109/36 135/54 140/49 O2 Sat by Pulse 96 99 98 Oximetry Medical Decision Making - Medical Decision Making EKG is interpreted by me. EKG shows a sinus rhythm at 74 bpm HI of the 187 QRS 116 QT interval 313 QTc is 341. Patient's EKG shows no ST segment elevation. Was pt. sent in by a medical professional or institution (BRIAN Garcia, MATERIAL LOADER, urgent care, hospital, or intermediate...) When possible be specific @ -Patient sent in by her doctor because of low hemoglobin Did you speak to anyone other than the patient for history (EMS, parent, family, police, friend...)? What history was obtained from this source @ -No Did you review nursing and triage notes (agree or disagree)? Why? @ -I reviewed and agree with nursing and triage notes Were old charts reviewed (outside hosp., previous admission, EMS record, old EKG, old radiological studies, urgent care reports/EKG's, intermediate records)? Report findings @ -I reviewed prior admissions on this patient prior lab work which indicated the patient's hemoglobin has been trending down Differential Diagnosis? @ -Differential Dyspnea: Coronary syndrome, arrhythmia, tamponade, asthma, COPD, pulmonary embolism, pneumonia, pneumothorax, pulmonary effusion, anaphylaxis, diabetic ketoacidosis, flailed chest, pulmonary contusion, diaphragmatic rupture, anemia, neuromuscular, this is not meant to be an all-inclusive list. EKG interpreted by me (3pts min.). @ -As above X-rays interpreted by me (1pt min.). @ -None done CT interpreted by me (1pt min.). @ -None done U/S interpreted by me (1pt. min.). @ -None done What testing was considered but not performed or refused? (CT, X-rays, U/S, labs)? Why? @ -None What meds were considered but not given or refused? Why? @ -None Did you discuss the management of the patient with other professionals (professionals i.e. DrIndira, PA, MATERIAL LOADER, lab, RT, psych nurse, 7th grade social studies teacher, law firm partner, teacher, sea air land officer, top case assembler)? Give summary @ -I spoke with Massiel at [facility]'s office and she wanted the patient admitted and agreed with the 2 units of blood that I was giving. I was spoke with Dr. Bosch he agreed to admit the patient Was smoking cessation discussed for >3mins.? @ -No Was critical care preformed (if so, how long)? @ -35 minutes Were there social determinants of health that impacted care today? How? (Homelessness, low income, unemployed, alcoholism, drug addiction, transportation, low edu. Level, literacy, decrease access to med. care, usp, rehab)? @ -No Was there de-escalation of care discussed even if they declined (Discuss DNR or withdrawal of care, Hospice)? DNR status @ -No What co-morbidities impacted this encounter? (DM, HTN, Smoking, COPD, CAD, Cancer, CVA, ARF, Chemo, Hep., AIDS, mental health diagnosis, sleep apnea, morbid obesity)? @ -None Was patient admitted / discharged? Hospital course, mention meds given and route, prescriptions, significant lab abnormalities, going to OR and other pertinent info. @ -Patient will be admitted and oncology will be consulted. Patient will have multiple CBCs drawn and hemoglobin will be followed Undiagnosed new problem with uncertain prognosis? @ -No Drug Therapy requiring intensive monitoring for toxicity (Heparin, Nitro, In sulin, Cardizem)? @ -No Were any procedures done? @ -No Diagnosis/symptom? @ -Anemia Acute, or Chronic, or Acute on Chronic? @ -Acute on chronic Uncomplicated (without systemic symptoms) or Complicated (systemic symptoms)? @ -Complicated Side effects of treatment? @ -No Exacerbation, Progression, or Severe Exacerbation? @ -No Poses a threat to life or bodily function? How? (Chest pain, [place], [place], pneumonia, PE, COPD, DKA, ARF, appy, cholecystitis, CVA, Diverticulitis, Homicidal, Suicidal, threat to staff... and all critical care pts) @ -Yes this can lead to hypoxia and endorgan dysfunction Diagnosis/symptom? @ -Elevated troponin Acute, or Chronic, or Acute on Chronic? @ -Default Uncomplicated (without systemic symptoms) or Complicated (systemic symptoms)? @ -Acute complicated Side effects of treatment? @ -None Exacerbation, Progression, or Severe Exacerbation] @ -No Poses a threat to life or bodily function? @ -No - Lab Data Result diagrams: 01/30/24 11:39 01/30/24 11:39 Lab Results 01/30/24 01/30/24 01/30/24 Range/Units 10:55 11:39 11:39 WBC 10.9 H (3.8-10.6) k/uL RBC 1.50 L (3.80-5.40) m/uL Hgb 4.5 L* (11.4-16.0) gm/dL Hct 14.4 L* (34.0-46.0) % MCV 95.8 (80.0-100.0) fL MCH 29.8 (25.0-35.0) pg MCHC 31.1 (31.0-37.0) g/dL RDW 18.3 H (11.5-15.5) % Plt Count 288 (150-450) k/uL MPV 6.9 Neutrophils % (Manual) 85 % Lymphocytes % (Manual) 10 % Monocytes % (Manual) 5 % Neutrophils # (Manual) 9.27 H (1.3-7.7) k/uL Lymphocytes # (Manual) 1.09 (1.0-4.8) k/uL Monocytes # (Manual) 0.55 (0-1.0) k/uL Nucleated RBCs 0 (0-0) /100 WBC Manual Slide Review Performed Hypochromasia Moderate Poikilocytosis Slight Anisocytosis Slight Macrocytosis Slight PT 11.7 (10.0-12.5) sec INR 1.1 (<1.2) APTT 18.7 L (22.0-30.0) sec Sodium (137-145) mmol/L Potassium (3.5-5.1) mmol/L Chloride (98-107) mmol/L Carbon Dioxide (22-30) mmol/L Anion Gap mmol/L BUN (7-17) mg/dL Creatinine (0.52-1.04) mg/dL Est GFR (CKD-EPI)AfAm (>60 ml/min/1.73 sqM) Est GFR (CKD-EPI)NonAf (>60 ml/min/1.73 sqM) Glucose (74-99) mg/dL Calcium (8.4-10.2) mg/dL Magnesium (1.6-2.3) mg/dL Total Bilirubin (0.2-1.3) mg/dL AST (14-36) U/L ALT (4-34) U/L Alkaline Phosphatase (38-126) U/L Troponin I (0.000-0.034) ng/mL Total Protein (6.3-8.2) g/dL Albumin (3.5-5.0) g/dL Blood Type O Positive Blood Type Recheck O Pos Bld Type Recheck Status No Antibody Screen NEGATIVE Crossmatch See Detail Spec Expiration Date 02/02/2024 - 234501/30/24 01/30/24 Range/Units 11:39 11:39 WBC (3.8-10.6) k/uL RBC (3.80-5.40) m/uL Hgb (11.4-16.0) gm/dL Hct (34.0-46.0) % MCV (80.0-100.0) fL MCH (25.0-35.0) pg MCHC (31.0-37.0) g/dL RDW (11.5-15.5) % Plt Count (150-450) k/uL MPV Neutrophils % (Manual) % Lymphocytes % (Manual) % Monocytes % (Manual) % Neutrophils # (Manual) (1.3-7.7) k/uL Lymphocytes # (Manual) (1.0-4.8) k/uL Monocytes # (Manual) (0-1.0) k/uL Nucleated RBCs (0-0) /100 WBC Manual Slide Review Hypochromasia Poikilocytosis Anisocytosis Macrocytosis PT (10.0-12.5) sec INR (<1.2) APTT (22.0-30.0) sec Sodium 129 L (137-145) mmol/L Potassium 2.9 L (3.5-5.1) mmol/L Chloride 99 (98-107) mmol/L Carbon Dioxide 24 (22-30) mmol/L Anion Gap 6 mmol/L BUN 20 H (7-17) mg/dL Creatinine 1.32 H (0.52-1.04) mg/dL Est GFR (CKD-EPI)AfAm 46 (>60 ml/min/1.73 sqM) Est GFR (CKD-EPI)NonAf 40 (>60 ml/min/1.73 sqM) Glucose 117 H (74-99) mg/dL Calcium 9.3 (8.4-10.2) mg/dL Magnesium 1.6 (1.6-2.3) mg/dL Total Bilirubin 0.4 (0.2-1.3) mg/dL AST 25 (14-36) U/L ALT 12 (4-34) U/L Alkaline Phosphatase 38 (38-126) U/L Troponin I 0.922 H* (0.000-0.034) ng/mL Total Protein 5.1 L (6.3-8.2) g/dL Albumin 3.0 L (3.5-5.0) g/dL Blood Type Blood Type Recheck Bld Type Recheck Status Antibody Screen Crossmatch Spec Expiration Date Disposition Clinical Impression: Acute on chronic anemia, Elevated troponin Disposition: ADMITTED IP TO THIS [facility] Time of Disposition: 13:52
[2024-01-30 12:07] LABS: Anisocytosis Slight; HCT 14.4 % (34.0-46.0); HGB 4.5 gm/dL (11.4-16.0); Hypochromasia Moderate; MCH 29.8 pg (25.0-35.0); MCHC 31.1 g/dL (31.0-37.0); MCV 95.8 fL (80.0-100.0); Macrocytosis Slight; Mean Platelet Volume 6.9; Platelet Count 288 k/uL (150-450); Poikilocytosis Slight; RDW 18.3 % (11.5-15.5); WBC 10.9 k/uL (3.8-10.6)
[2024-01-30 12:12] LABS: ALT 12 U/L (4-34); AST 25 U/L (14-36); African American GFR (CKD) 46 (>60 ml/min/1.73 sqM); Alkaline Phosphatase 38 U/L (38-126); Anion Gap 6 mmol/L; Blood Urea Nitrogen 20 mg/dL (7-17); Calcium 9.3 mg/dL (8.4-10.2); Carbon Dioxide 24 mmol/L (22-30); Chloride 99 mmol/L (98-107); Glucose 117 mg/dL (74-99); Magnesium 1.6 mg/dL (1.6-2.3); Non-African American GFR(CKD) 40 (>60 ml/min/1.73 sqM); Potassium 2.9 mmol/L (3.5-5.1); Sodium 129 mmol/L (137-145); Total Bilirubin 0.4 mg/dL (0.2-1.3); Total Protein 5.1 g/dL (6.3-8.2)
[2024-01-30 12:21] LABS: INR 1.1 (<1.2); Prothrombin Time 11.7 sec (10.0-12.5)
[2024-01-30 12:28] LABS: Lymphocytes # (M) 1.09 k/uL (1.0-4.8); Monocytes # (M) 0.55 k/uL (0-1.0); Neutrophils # (M) 9.27 k/uL (1.3-7.7); Neutrophils % (M) 85 %; Nucleated Red Blood Cells 0 /100 WBC (0-0); Total Cells Counted 100
[2024-01-30 12:35] LABS: Partial Thromboplastin Time 18.7 sec (22.0-30.0)
[2024-01-30] MEDS: POTASSIUM CHLORIDE ER 20 MEQ TAB.ER PO STA ×2 (15:17→17:35)
[2024-01-30] MEDS ORDERED: HYDROcodone/APAP 5-325MG 1 EACH TAB PO PRN (16:27)
[2024-01-30] MEDS: SODIUM CHLORIDE 0.9% 1,000 ML IV ONE (16:51)
[2024-01-30] MEDS: POTASSIUM CHLORIDE 20 MEQ in WATER FOR INJECTION 1 100ML.BAG IVPB STA (16:53)
[2024-01-30] MEDS ORDERED: ACETAMINOPHEN TAB 500 MG TAB PO PRN (18:07)
[2024-01-30 21:22] LABS: Anisocytosis Slight; Basophils % (A) 0 %; Eosinophils # (A) 0.2 k/uL (0-0.7); Eosinophils % (A) 2 %; Hypochromasia Slight; Lymphocytes # (A) 0.7 k/uL (1.0-4.8); Lymphocytes % (A) 9 %; MCH 31.9 pg (25.0-35.0); MCHC 33.9 g/dL (31.0-37.0); Macrocytosis Slight; Mean Platelet Volume 7.5; Monocytes # (A) 0.6 k/uL (0-1.0); Monocytes % (A) 7 %; Neutrophils # (A) 6.2 k/uL (1.3-7.7); Neutrophils % (A) 80 %; Platelet Count 202 k/uL (150-450); Poikilocytosis Slight; RBC 2.13 m/uL (3.80-5.40); RDW 17.7 % (11.5-15.5); WBC 7.8 k/uL (3.8-10.6)
[2024-01-30 21:26] LABS: HGB 6.8 gm/dL (11.4-16.0)
[2024-01-30] MEDS: HYDROCORTISONE ENEMA 100 MG/60 ML RECTAL SCH (22:12)
[2024-01-30] MEDS: SPIRONOLACTONE 25 MG TAB PO SCH (22:16)
[2024-01-30] MEDS: LOSARTAN 50 MG TAB PO SCH (22:16)
[2024-01-30] MEDS: ATORVASTATIN 40 MG TAB PO SCH (22:16)
[2024-01-30] MEDS: BALSALAZIDE DISODIUM 750 MG CAPSULE PO SCH (22:44)
[2024-01-30] MEDS: ALPRAZolam 0.5 MG TAB PO PRN (22:48)
--- NOTE | 2024-01-30 23:10 | P.HPIM ---
History of Present Illness H&P Date: 01/30/24 Chief Complaint: Short of breath Patient was seen by me this afternoon in the ER. pleasant 73-year-old patient, follows with Dr. Roth. Chronic stable medical conditions include atrial fibrillation, CHF, diabetes, hypertension, hyperlipidemia, osteoarthritis, chronic kidney disease, obstructive sleep apnea uses CPAP, left breast cancer with surgery over 10 years ago, CAD with stent . Patient lives with her . Patient was here in September of this year. Has been diagnosed with radiation colitis and had local coagulation by Dr. Michael Renee. Since then patient is continued to bleed on a regular basis. Keeps getting blood transfusions anyway from 1 to 2 units a week. 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 Patient now presents short of breath weak tired accompanied by daughter. Was down to 4.5. Use of blood were initially ordered in the ER. Patient does have appointment at [facility]. Coming up shortly. Denies any chest pain. Review of systems: GEN.: Tired EYES: None HEENT: Decreased hearing e NECK: None RESPIRATORY: Short of breath CARDIOVASCULAR: None GASTROINTESTINAL: As above GENITOURINARY: None MUSCULOSKELETAL: Joint p pains LYMPHATICS: None HEMATOLOGICAL: None PSYCHIATRY: None NEUROLOGICAL: None Social history: Lives with . Drinks 1 to 2 glasses of wine daily. Smoked a pack a day for about 20 years stopped in 2005. Physical examination: VITAL SIGNS: 99, 80, 18, 125 x 51, 98% GENERAL:, Reclining in bed, awake, tired EYES: Pupils equal. Conjunctiva pale HEENT: External appearance of nose and ears normal, oral cavity grossly normal. decrease in hearing NECK: JVD not raised; masses not palpable. HEART: First and second heart sounds are normal; no edema. LUNGS: Respiratory rate normal; slightly decreased breath sound n. ABDOMEN: Soft, nontender, liver spleen not palpable, no masses palpable. PSYCH: Answering question appropriately to slightly forgetful l. MUSCULOSKELETAL:No Clubbing/cyanosis;muscles-grossly intact NEUROLOGICAL: Cranial nerves grossly intact; no facial asymmetry, power and sensation grossly intact. 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 Patient had local coagulation done by Dr. Michael Renee in September of this year for the telangiectasia. From above. Patient is a several units of blood transfused since then. Now presents with hemoglobin less than 5. Patient has an appointment at [facility] later this week -Severe anemia symptomatic from above Initially 2 units of blood ordered in the ER -Acute type II OH, secondary to severe blood loss, positive troponin Patient cannot be given any antiplatelet agents/blood thinners. Consult cardiology. 2D echo -Paroxysmal atrial fibrillation currently sinus rhythm Cardizem XR 120 mg a day -Chronic congestive heart failure. EF not known Bumex 1 mg a day Aldactone 25 mg a day -Sigmoid diverticulosis -Diabetes mellitus type 2, Diet controlled -Hyperlipidemia Crestor 20 mg nightly -Primary osteoarthritis Tylenol as needed -Chronic kidney disease stage III likely nephrosclerosis Follow renal function -Obstructive sleep apnea uses CPAP -History of left breast cancer -Coronary artery disease with stent Crestor. -Essential hypertension Cozaar 50 mg a day Cardizem -Bladder cancer that was removed -Anxiety depression Prozac. Xanax -Obesity BMI 40.6 Weight loss measures -Full code Discussed with patient and the daughter. Patient's blood does come back to be 6.8 after 2 units of blood. 30 red blood has been ordered. Past Medical History Past Medical History: Atrial Fibrillation, Cancer, Heart Failure, Diabetes Mellitus, Hyperlipidemia, Hypertension, Osteoarthritis (OA), Renal Disease, Sleep Apnea/CPAP/BIPAP Additional Past Medical History / Comment(s): lt breast cancer-*do not use lt arm for b/p,IV's*, new dx. bladder cancer- had surg. heart murmur, SOB w/exertion. has cpap , bladder CA History of Any Multi-Drug Resistant Organisms: None Reported Past Surgical History: Breast Surgery, Section, Cholecystectomy, Heart Catheterization With Stent, Orthopedic Surgery Additional Past Surgical History / Comment(s): lt breast nipple removed, 20 lymph nodes removed lt axillae, hemorroidectomy, melvin. feet surgery, rt great toe screws, bladder tumor removed September @[place] Past Anesthesia/Blood Transfusion Reactions: Previous Problems w/ Anesthesia Additional Past Anesthesia/Blood Transfusion Reaction / Comment(s): pt has anesthesia letter indicating need for glidoscope due to difficult intubation Date of Last Stent Placement:: 2019 Past Psychological History: Anxiety, Depression Smoking Status: Former smoker - Past Family History Father Family Medical History: COPD, Coronary Artery Disease (CAD) Additional Family Medical History / Comment(s): Fluid around heart Mother Family Medical History: No Reported History Medications and Allergies Home Medications Medication Instructions Recorded Confirmed Type FLUoxetine HCL [PROzac] 20 mg PO DAILY 03/13/20 01/30/24 History Multivitamins, Thera [Multivitamin 1 tab PO DAILY 12/09/22 01/30/24 History (formulary)] ALPRAZolam [Xanax] 0.5 mg PO TID PRN 10/05/23 01/30/24 History Bumetanide [BUMEX] 1 mg PO DAILY 10/05/23 01/30/24 History Losartan [Cozaar] 50 mg PO HS 10/05/23 01/30/24 History Rosuvastatin [Crestor] 20 mg PO HS 10/05/23 01/30/24 History Balsalazide Disodium [Colazal] 2,250 mg PO TID 01/30/24 01/30/24 History HYDROcodone/APAP 5-325MG [[place] 1 tab PO Q6HR PRN 01/30/24 01/30/24 History 5-325] Hydrocortisone Enema [Colocort 100 mg RECTAL HS 01/30/24 01/30/24 History Enema] Psyllium Husk [Metamucil] 0.4 gm PO DAILY 01/30/24 01/30/24 History Sennosides/Docusate Sodium [Senna 1 tab PO Q2D@2100 01/30/24 01/30/24 History Plus 8.6-50 mg Tablet] Spironolactone [Aldactone] 25 mg PO HS 01/30/24 01/30/24 History Vitamin B-12 (Unknown Dose) 1 dose PO DAILY 01/30/24 01/30/24 History Vitamin C (Unknown Dose) 1 dose PO DAILY 01/30/24 01/30/24 History Vitamin D3 (Unknown Dose) 1 tab PO DAILY 01/30/24 01/30/24 History dilTIAZem HCL [dilTIAZem HCL 24Hr 120 mg PO DAILY 01/30/24 01/30/24 History ER (Xr)] Allergies Allergy/AdvReac Type Severity Reaction Status Date / Time adhesive tape Allergy Rash/Hives Verified 01/30/24 15:24 clarithromycin Allergy Rash/Hives Verified 01/30/24 15:24 Penicillins Allergy Unknown Verified 01/30/24 15:24 Childhood Sulfa (Sulfonamide Allergy Unknown Verified 01/30/24 15:24 Antibiotics) Childhood Physical Exam Vitals: Vital Signs Temp Pulse Resp BP Pulse Ox 01/30/24 22:45 98.5 F 79 16 115/60 01/30/24 21:00 98.6 F 79 16 139/54 01/30/24 18:39 98.8 F 78 20 126/55 99 01/30/24 17:53 99.4 F 80 20 118/53 100 01/30/24 17:33 99.0 F 80 18 125/51 98 01/30/24 17:14 98.6 F 77 18 132/48 99 01/30/24 16:56 77 18 127/51 98 01/30/24 16:08 98.3 F 79 18 142/54 99 01/30/24 15:02 77 18 140/56 99 01/30/24 13:59 98.7 F 75 18 140/49 98 01/30/24 13:39 98.7 F 73 18 135/54 99 01/30/24 13:26 98.3 F 91 20 109/36 96 01/30/24 13:17 98.6 F 79 18 139/51 98 01/30/24 11:50 78 20 138/73 98 01/30/24 09:56 98.4 F 96 18 133/47 100 Intake and Output 01/30/24 01/30/24 01/31/24 14:59 22:59 06:59 Intake Total 0 560 Balance 0 560 Intake: Blood Product 0 560 Unit 0 Rc Pheresis 2 As3 Unit 0 273 [id number] Rc Pheresis 2 As3 Unit 287 [id number] Other: Weight 94.347 kg Results CBC & Chem 7: 01/30/24 20:52 01/30/24 11:39 Labs: Abnormal Lab Results - Last 24 Hours (Table) 01/30/24 01/30/24 01/30/24 Range/Units 10:55 11:39 11:39 WBC 10.9 H (3.8-10.6) k/uL RBC 1.50 L (3.80-5.40) m/uL Hgb 4.5 L* (11.4-16.0) gm/dL Hct 14.4 L* (34.0-46.0) % RDW 18.3 H (11.5-15.5) % Neutrophils # (Manual) 9.27 H (1.3-7.7) k/uL Lymphocytes # (1.0-4.8) k/uL APTT 18.7 L (22.0-30.0) sec Sodium (137-145) mmol/L Potassium (3.5-5.1) mmol/L BUN (7-17) mg/dL Creatinine (0.52-1.04) mg/dL Glucose (74-99) mg/dL Troponin I (0.000-0.034) ng/mL Total Protein (6.3-8.2) g/dL Albumin (3.5-5.0) g/dL Crossmatch See Detail 01/30/24 01/30/24 01/30/24 Range/Units 11:39 11:39 14:56 WBC (3.8-10.6) k/uL RBC (3.80-5.40) m/uL Hgb (11.4-16.0) gm/dL Hct (34.0-46.0) % RDW (11.5-15.5) % Neutrophils # (Manual) (1.3-7.7) k/uL Lymphocytes # (1.0-4.8) k/uL APTT (22.0-30.0) sec Sodium 129 L (137-145) mmol/L Potassium 2.9 L (3.5-5.1) mmol/L BUN 20 H (7-17) mg/dL Creatinine 1.32 H (0.52-1.04) mg/dL Glucose 117 H (74-99) mg/dL Troponin I 0.922 H* 1.030 H* (0.000-0.034) ng/mL Total Protein 5.1 L (6.3-8.2) g/dL Albumin 3.0 L (3.5-5.0) g/dL Crossmatch 01/30/24 01/30/24 Range/Units 18:33 20:52 WBC (3.8-10.6) k/uL RBC 2.13 L (3.80-5.40) m/uL Hgb 6.8 L* D (11.4-16.0) gm/dL Hct 20.0 L (34.0-46.0) % RDW 17.7 H (11.5-15.5) % Neutrophils # (Manual) (1.3-7.7) k/uL Lymphocytes # 0.7 L (1.0-4.8) k/uL APTT (22.0-30.0) sec Sodium (137-145) mmol/L Potassium (3.5-5.1) mmol/L BUN (7-17) mg/dL Creatinine (0.52-1.04) mg/dL Glucose (74-99) mg/dL Troponin I 1.100 H* (0.000-0.034) ng/mL Total Protein (6.3-8.2) g/dL Albumin (3.5-5.0) g/dL Crossmatch
[2024-01-30 23:19] VITALS: RESP 18
[2024-01-31 05:27] LABS: Anisocytosis Slight; Basophils % (A) 0 %; Eosinophils # (A) 0.2 k/uL (0-0.7); Eosinophils % (A) 3 %; HCT 22.4 % (34.0-46.0); HGB 7.4 gm/dL (11.4-16.0); Hypochromasia Slight; Lymphocytes # (A) 0.6 k/uL (1.0-4.8); Lymphocytes % (A) 10 %; MCH 30.9 pg (25.0-35.0); MCHC 32.9 g/dL (31.0-37.0); Monocytes # (A) 0.3 k/uL (0-1.0); Monocytes % (A) 5 %; Neutrophils # (A) 4.9 k/uL (1.3-7.7); Neutrophils % (A) 79 %; Platelet Count 205 k/uL (150-450); Poikilocytosis Slight; RBC 2.39 m/uL (3.80-5.40); WBC 6.2 k/uL (3.8-10.6)
[2024-01-31 05:45] LABS: African American GFR (CKD) 50 (>60 ml/min/1.73 sqM); Anion Gap 1 mmol/L; Blood Urea Nitrogen 17 mg/dL (7-17); Calcium 8.7 mg/dL (8.4-10.2); Carbon Dioxide 27 mmol/L (22-30); Chloride 103 mmol/L (98-107); Glucose 126 mg/dL (74-99); Non-African American GFR(CKD) 44 (>60 ml/min/1.73 sqM); Potassium 4.1 mmol/L (3.5-5.1); Sodium 131 mmol/L (137-145)
[2024-01-31 08:18] VITALS: TEMP 98.2
--- NOTE | 2024-01-31 08:58 | P.CRDCN ---
History of Present Illness History of present illness: HISTORY OF PRESENT ILLNESS: This is a 74-year-old female with a past medical history significant for coronary artery disease with previous stenting, hypertension, hyperlipidemia, paroxysmal atrial fibrillation, and congestive heart failure. Patient follows in the office with Dr. Peace. We have been asked to see the patient in consultation for elevated troponins. Patient examined at the bedside in the emergency room. The patient presented to the hospital due to anemia. She states that she has been having issues with rectal bleeding for about a year. She reports that history of bladder cancer and was treated with chemo and radiation. She states since that time she has been having ongoing bleeding issues and has required multiple blood transfusions. She underwent endoscopy on November 07, [address] Renee revealing radiation colitis. The patient states that she has an appointment set up at [facility] for further evaluation of her bleeding. The patient currently denies any chest pain or pressure. At the time of examination she denies any shortness of breath but she does report shortness of breath and palpitations when her blood counts become low. Patient's hemoglobin on admission was 4.5. She has received 3 units of RBCs. Repeat hemoglobin 7.4. DIAGNOSTICS: - EKG reveals sinus mechanism with no signs of acute ischemia - Laboratory data: WBC 6.2. Hemoglobin 7.4. Platelet count 205. Sodium 131. Potassium 4.1. BUN 17. Creatinine 1.22. Troponin 0.922. 1.030. 1.100. - Current home cardiac medications include Bumex 1 mg daily, Crestor 20 mg at night, losartan 50 mg at night, Cardizem 120 mg daily, Aldactone 25 mg at night - Most recent echocardiogram obtained in January 2020 revealing normal EF, mild MR, mild AI, mild TR - Cardiac catheterization history: March 2020 revealing 40% mid LAD, 70% mid diagonal 1, 30% proximal circumflex, and 70% proximal RCA REVIEW OF SYSTEMS: At the time of my exam: CONSTITUTIONAL: Denies fever or chills. HEENT: Denies blurred vision, vision changes, or eye pain. Denies hemoptysis CARDIOVASCULAR: Denies chest pain. Denies orthopnea. Denies PND. Denies palpitations RESPIRATORY: Denies shortness of breath. GASTROINTESTINAL: Denies abdominal pain. Denies nausea or vomiting. HEMATOLOGIC: Denies bleeding disorders. GENITOURINARY: Denies any blood in urine. SKIN: Denies pruitis. Denies rash. PHYSICAL EXAM: VITAL SIGNS: Reviewed. GENERAL: Well-developed in no acute distress. HEENT: Head is normocephalic. Pupils are equal, round. Sclerae anicteric. Mucous membranes of the mouth are moist. Neck supple. No JVD or thyromegaly LUNGS: Respirations even and unlabored. Lungs essentially clear to auscultation bilaterally. HEART: Regular rate and rhythm. S1 and S2 heard. ABDOMEN: Soft. Nondistended. Nontender. EXTREMITIES: Normal range of motion. No clubbing or cyanosis. Peripheral pulses intact. No lower extremity edema NEUROLOGIC: Awake and alert. Oriented x 3. 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 Elevated troponins, type II NC secondary to oxygen supply/demand mismatch, no evidence of acute coronary syndrome Coronary artery disease with previous stenting of the proximal RCA, March 2020 Paroxysmal atrial fibrillation, not on anticoagulation secondary to recurrent GI bleed Congestive heart failure with preserved EF, currently euvolemic History of bladder cancer with chemo and radiation Hypertension Hyperlipidemia Obstructive sleep apnea with CPAP use Diabetes PLAN: An acute coronary event has been ruled out Obtain 2D echo to assess cardiac structure and function Resume home cardiac medications Patient is not on anticoagulation secondary to recurrent GI bleed Recommend further evaluation at tertiary care center Further recommendations pending patient course Nurse practitioner note has been reviewed by physician. Signing provider agrees with the documented findings, assessment, and plan of care documented by SPACE CONTROL AGENT as a scribe. Past Medical History Past Medical History: Atrial Fibrillation, Cancer, Heart Failure, Diabetes Mellitus, Hyperlipidemia, Hypertension, Osteoarthritis (OA), Renal Disease, Sleep Apnea/CPAP/BIPAP Additional Past Medical History / Comment(s): lt breast cancer-*do not use lt arm for b/p,IV's*, new dx. bladder cancer- had surg. heart murmur, SOB w/exertion. has cpap , bladder CA History of Any Multi-Drug Resistant Organisms: None Reported Past Surgical History: Breast Surgery, Section, Cholecystectomy, Heart Catheterization With Stent, Orthopedic Surgery Additional Past Surgical History / Comment(s): lt breast nipple removed, 20 lymph nodes removed lt axillae, hemorroidectomy, melvin. feet surgery, [place] Past Anesthesia/Blood Transfusion Reactions: Previous Problems w/ Anesthesia Additional Past Anesthesia/Blood Transfusion Reaction / Comment(s): pt has anesthesia letter indicating need for glidoscope due to difficult intubation Date of Last Stent Placement:: 2019 Past Psychological History: Anxiety, Depression Additional Psychological History / Comment(s): Pt resides with spouse. Smoking Status: Former smoker Past Alcohol Use History: Daily Additional Past Alcohol Use History / Comment(s): smoker for 20 years 1 ppd quit 2005, glass of wine or 2 daily Past Drug Use History: None Reported - Past Family History Father Family Medical History: COPD, Coronary Artery Disease (CAD) Additional Family Medical History / Comment(s): Fluid around heart Mother Family Medical History: No Reported History Medications and Allergies Home Medications Medication Instructions Recorded Confirmed Type FLUoxetine HCL [PROzac] 20 mg PO DAILY 03/13/20 01/30/24 History Multivitamins, Thera [Multivitamin 1 tab PO DAILY 12/09/22 01/30/24 History (formulary)] ALPRAZolam [Xanax] 0.5 mg PO TID PRN 10/05/23 01/30/24 History Bumetanide [BUMEX] 1 mg PO DAILY 10/05/23 01/30/24 History Losartan [Cozaar] 50 mg PO HS 10/05/23 01/30/24 History Rosuvastatin [Crestor] 20 mg PO HS 10/05/23 01/30/24 History Balsalazide Disodium [Colazal] 2,250 mg PO TID 01/30/24 01/30/24 History HYDROcodone/APAP 5-325MG [[place] 1 tab PO Q6HR PRN 01/30/24 01/30/24 History 5-325] Hydrocortisone Enema [Colocort 100 mg RECTAL HS 01/30/24 01/30/24 History Enema] Psyllium Husk [Metamucil] 0.4 gm PO DAILY 01/30/24 01/30/24 History Sennosides/Docusate Sodium [Senna 1 tab PO Q2D@2100 01/30/24 01/30/24 History Plus 8.6-50 mg Tablet] Spironolactone [Aldactone] 25 mg PO HS 01/30/24 01/30/24 History Vitamin B-12 (Unknown Dose) 1 dose PO DAILY 01/30/24 01/30/24 History Vitamin C (Unknown Dose) 1 dose PO DAILY 01/30/24 01/30/24 History Vitamin D3 (Unknown Dose) 1 tab PO DAILY 01/30/24 01/30/24 History dilTIAZem HCL [dilTIAZem HCL 24Hr 120 mg PO DAILY 01/30/24 01/30/24 History ER (Xr)] Allergies Allergy/AdvReac Type Severity Reaction Status Date / Time adhesive tape Allergy Rash/Hives Verified 01/30/24 15:24 clarithromycin Allergy Rash/Hives Verified 01/30/24 15:24 Penicillins Allergy Unknown Verified 01/30/24 15:24 Childhood Sulfa (Sulfonamide Allergy Unknown Verified 01/30/24 15:24 Antibiotics) Childhood Physical Exam Vitals: Vital Signs Temp Pulse Pulse Resp BP BP Pulse Ox 01/31/24 01:05 98.5 F 78 101/43 01/31/24 00:05 74 18 108/47 98 01/30/24 23:05 97.9 F 73 18 114/47 98 01/30/24 22:45 98.5 F 79 16 115/60 01/30/24 21:00 98.6 F 79 16 139/54 01/30/24 18:39 98.8 F 78 20 126/55 99 01/30/24 17:53 99.4 F 80 20 118/53 100 01/30/24 17:33 99.0 F 80 18 125/51 98 01/30/24 17:14 98.6 F 77 18 132/48 99 01/30/24 16:56 77 18 127/51 98 01/30/24 16:08 98.3 F 79 18 142/54 99 01/30/24 15:02 77 18 140/56 99 01/30/24 13:59 98.7 F 75 18 140/49 98 01/30/24 13:39 98.7 F 73 18 135/54 99 01/30/24 13:26 98.3 F 91 20 109/36 96 01/30/24 13:17 98.6 F 79 18 139/51 98 01/30/24 11:50 78 20 138/73 98 01/30/24 09:56 98.4 F 96 18 133/47 100 Intake and Output 01/30/24 01/31/24 01/31/24 22:59 06:59 14:59 Intake Total 560 297 Output Total 400 Balance 560 -103 Intake: Blood Product 560 297 Rc Pheresis 2 As3 Unit 273 [id number] Rc Pheresis 2 As3 Unit 287 [id number] Rc Pheresis 2 As3 Unit 0 297 [id number] Output: Urine 400 Other: Weight 94.347 kg Results 01/31/24 04:40 01/31/24 04:40 Cardiac Enzymes 01/30/24 01/30/24 01/30/24 Range/Units 11:39 11:39 14:56 AST 25 (14-36) U/L Troponin I 0.922 H* 1.030 H* (0.000-0.034) ng/mL 01/30/24 Range/Units 18:33 AST (14-36) U/L Troponin I 1.100 H* (0.000-0.034) ng/mL Coagulation 01/30/24 Range/Units 11:39 PT 11.7 (10.0-12.5) sec APTT 18.7 L (22.0-30.0) sec CBC 01/30/24 01/30/24 01/31/24 Range/Units 11:39 20:52 04:40 WBC 10.9 H 7.8 6.2 (3.8-10.6) k/uL RBC 1.50 L 2.13 L 2.39 L (3.80-5.40) m/uL Hgb 4.5 L* 6.8 L* D 7.4 L (11.4-16.0) gm/dL Hct 14.4 L* 20.0 L 22.4 L (34.0-46.0) % Plt Count 288 202 205 (150-450) k/uL Comprehensive Metabolic Panel 01/30/24 01/31/24 Range/Units 11:39 04:40 Sodium 129 L 131 L (137-145) mmol/L Potassium 2.9 L 4.1 (3.5-5.1) mmol/L Chloride 99 103 (98-107) mmol/L Carbon Dioxide 24 27 (22-30) mmol/L BUN 20 H 17 (7-17) mg/dL Creatinine 1.32 H 1.22 H (0.52-1.04) mg/dL Glucose 117 H 126 H (74-99) mg/dL Calcium 9.3 8.7 (8.4-10.2) mg/dL AST 25 (14-36) U/L ALT 12 (4-34) U/L Alkaline Phosphatase 38 (38-126) U/L Total Protein 5.1 L (6.3-8.2) g/dL Albumin 3.0 L (3.5-5.0) g/dL Current Medications Generic Name Dose Route Start Last Admin Trade Name Freq PRN Reason Stop Dose Admin Acetaminophen 500 mg 01/30/24 18:07 Acetaminophen Tab 500 Mg Tab PO Q6HR PRN Fever and/ or Pain Hydrocodone Bitart/Acetaminophen 1 each 01/30/24 16:27 Hydrocodone/Apap 5-325mg 1 Each Tab PO Q6HR PRN Pain Alprazolam 0.5 mg 01/30/24 16:27 01/30/24 22:48 Alprazolam 0.5 Mg Tab PO 0.5 mg TID PRN Administration Anxiety Atorvastatin Calcium 40 mg 01/30/24 21:00 01/30/24 22:16 Atorvastatin 40 Mg Tab PO 40 mg HS SUNNY Administration Balsalazide 2,250 mg 01/30/24 22:00 01/30/24 22:44 Balsalazide Disodium 750 Mg Capsule PO 2,250 mg TID SUNNY Administration Bumetanide 1 mg 01/31/24 09:00 Bumetanide 1 Mg Tab PO DAILY SUNNY Diltiazem HCl 120 mg 01/31/24 09:00 Diltiazem Cd 120 Mg Cap.Er.24h PO DAILY [facility] Fluoxetine HCl 20 mg 01/31/24 09:00 Fluoxetine Hcl 20 Mg Cap PO DAILY SUNNY Hydrocortisone 100 mg 01/30/24 21:00 01/30/24 22:12 Hydrocortisone Enema 100 Mg/60 Ml RECTAL Not Given HS SUNNY Losartan Potassium 50 mg 01/30/24 21:00 01/30/24 22:16 Losartan 50 Mg Tab PO 50 mg HS SUNNY Administration Multivitamins 1 each 01/31/24 09:00 Multivitamins, Thera 1 Each Tab PO DAILY [facility] Psyllium Hydrophilic Mucilloid 6 gm 01/31/24 09:00 Psyllium Husk 100% 6 Gm Packet PO DAILY [facility] Spironolactone 25 mg 01/30/24 21:00 01/30/24 22:16 Spironolactone 25 Mg Tab PO 25 mg HS SUNNY Administration Intake and Output 01/30/24 01/31/24 01/31/24 22:59 06:59 14:59 Intake Total 560 297 Output Total 400 Balance 560 -103 Intake: Blood Product 560 297 Rc Pheresis 2 As3 Unit 273 [id number] Rc Pheresis 2 As3 Unit 287 [id number] Rc Pheresis 2 As3 Unit 0 297 [id number] Output: Urine 400 Other: Weight 94.347 kg 01/31/24 04:40 01/31/24 04:40
[2024-01-31] MEDS ORDERED: VITAMIN D3 PO SCH (09:00)
[2024-01-31] MEDS ORDERED: VITAMIN C PO SCH (09:00)
[2024-01-31] MEDS ORDERED: VITAMIN B12 PO SCH (09:00)
[2024-01-31] MEDS: MULTIVITAMINS, THERA 1 EACH TAB PO SCH (09:23)
[2024-01-31] MEDS: PSYLLIUM HUSK 100% 6 GM PACKET PO SCH (09:23)
[2024-01-31] MEDS: FLUoxetine HCL 20 MG CAP PO SCH (09:23)
[2024-01-31] MEDS: DILTIAZEM CD 120 MG CAP.ER.24H PO SCH (09:23)
[2024-01-31] MEDS: BUMETANIDE 1 MG TAB PO SCH (09:23)
[2024-01-31 14:26] VITALS: BP 135/53; PULSE 85
--- NOTE | 2024-01-31 15:06 | P.CONS ---
History of Present Illness - Reason for Consult Consult date: 01/31/24 acute on chronic anemia Requesting physician: Rudy Ruvalcaba - Chief Complaint anemia - History of Present Illness Nallely Walker is a long time pt of Dr. Arielle Molina with a Hx breast cancer 2010, [id number], 4/15 LN involved treated with chemo and radiation, took AI for 10 years completing 2020, no evidence of recurrence since. 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 She had bladder preservation treatment approach with concurrent chemo/XRT, completing that Mar 2023. In October 2023 pt was seen for CBC check as she reported persistent weakness, fatigue, SOB on exertion x 1 month. Found to be anemic on labs, iron studies showed low normal iron levels. She did NOT report that she was having BRBPR until a few weeks later. She ended up having colonscopy and has diagnosed with Radiation p roctatitis. She had cauterization x 2 in October. She cont to have bloody stools. She cont on steroid suppositories and balsalazide. She only gets brief periods of relief from rectal bleeding then it resumes with a BM. She has been on CBC checks with PRBC transfusions PRN. She has bee receiving IV iron as well. She has appt with [facility], possible referral for hyperbaric treatments. She was in office yesterday for CBC and Hgb was 4.9 (4.5 at hospital) so, due to Hgb being so low, she needed to be sent to the ER for transfusion. She is s/p 3 units PRBCs and her Hgb is 7.4. She states feeling much better today. She had solid BM with bright red blood. Denies fevers, N,V, chest pain, abd pain, no other bleeding. Review of Systems 10 point ROS is neg Past Medical History Past Medical History: Atrial Fibrillation, Cancer, Heart Failure, Diabetes Mellitus, Hyperlipidemia, Hypertension, Osteoarthritis (OA), Renal Disease, Sleep Apnea/CPAP/BIPAP Additional Past Medical History / Comment(s): lt breast cancer-*do not use lt arm for b/p,IV's*, new dx. bladder cancer- had surg. heart murmur, SOB w/exertion. has cpap , bladder CA History of Any Multi-Drug Resistant Organisms: None Reported Past Surgical History: Breast Surgery, Section, Cholecystectomy, Heart Catheterization With Stent, Orthopedic Surgery Additional Past Surgical History / Comment(s): lt breast nipple removed, 20 lymph nodes removed lt axillae, hemorroidectomy, melvin. feet surgery, rt great toe screws, bladder tumor removed September Past Anesthesia/Blood Transfusion Reactions: Previous Problems w/ Anesthesia Additional Past Anesthesia/Blood Transfusion Reaction / Comm: pt has anesthesia letter indicating need for glidoscope due to difficult intubation Date of Last Stent Placement:: 2019 Past Psychological History: Anxiety, Depression Additional Psychological History / Comment(s): Pt resides with spouse. Smoking Status: Former smoker Past Alcohol Use History: Daily Additional Past Alcohol Use History / Comment(s): smoker for 20 years 1 ppd quit 2005, glass of wine or 2 daily Past Drug Use History: None Reported - Past Family History Father Family Medical History: COPD, Coronary Artery Disease (CAD) Additional Family Medical History / Comment(s): Fluid around heart Mother Family Medical History: No Reported History Medications and Allergies Home Medications Medication Instructions Recorded Confirmed Type FLUoxetine HCL [PROzac] 20 mg PO DAILY 03/13/20 01/30/24 History Multivitamins, Thera [Multivitamin 1 tab PO DAILY 12/09/22 01/30/24 History (formulary)] ALPRAZolam [Xanax] 0.5 mg PO TID PRN 10/05/23 01/30/24 History Bumetanide [BUMEX] 1 mg PO DAILY 10/05/23 01/30/24 History Losartan [Cozaar] 50 mg PO HS 10/05/23 01/30/24 History Rosuvastatin [Crestor] 20 mg PO HS 10/05/23 01/30/24 History Balsalazide Disodium [Colazal] 2,250 mg PO TID 01/30/24 01/30/24 History HYDROcodone/APAP 5-325MG [[place] 1 tab PO Q6HR PRN 01/30/24 01/30/24 History 5-325] Hydrocortisone Enema [Colocort 100 mg RECTAL HS 01/30/24 01/30/24 History Enema] Psyllium Husk [Metamucil] 0.4 gm PO DAILY 01/30/24 01/30/24 History Sennosides/Docusate Sodium [Senna 1 tab PO Q2D@2100 01/30/24 01/30/24 History Plus 8.6-50 mg Tablet] Spironolactone [Aldactone] 25 mg PO HS 01/30/24 01/30/24 History Vitamin B-12 (Unknown Dose) 1 dose PO DAILY 01/30/24 01/30/24 History Vitamin C (Unknown Dose) 1 dose PO DAILY 01/30/24 01/30/24 History Vitamin D3 (Unknown Dose) 1 tab PO DAILY 01/30/24 01/30/24 History dilTIAZem HCL [dilTIAZem HCL 24Hr 120 mg PO DAILY 01/30/24 01/30/24 History ER (Xr)] Allergies Allergy/AdvReac Type Severity Reaction Status Date / Time adhesive tape Allergy Rash/Hives Verified 01/30/24 15:24 clarithromycin Allergy Rash/Hives Verified 01/30/24 15:24 Penicillins Allergy Unknown Verified 01/30/24 15:24 Childhood Sulfa (Sulfonamide Allergy Unknown Verified 01/30/24 15:24 Antibiotics) Childhood Physical Exam Vitals: Vital Signs Temp Pulse Pulse Resp BP BP Pulse Ox 01/31/24 08:00 98.2 F 72 18 135/59 98 01/31/24 01:05 98.5 F 78 101/43 01/31/24 00:05 74 18 108/47 98 01/30/24 23:05 97.9 F 73 18 114/47 98 01/30/24 22:45 98.5 F 79 16 115/60 01/30/24 21:00 98.6 F 79 16 139/54 01/30/24 18:39 98.8 F 78 20 126/55 99 01/30/24 17:53 99.4 F 80 20 118/53 100 01/30/24 17:33 99.0 F 80 18 125/51 98 01/30/24 17:14 98.6 F 77 18 132/48 99 01/30/24 16:56 77 18 127/51 98 01/30/24 16:08 98.3 F 79 18 142/54 99 01/30/24 15:02 77 18 140/56 99 01/30/24 13:59 98.7 F 75 18 140/49 98 01/30/24 13:39 98.7 F 73 18 135/54 99 01/30/24 13:26 98.3 F 91 20 109/36 96 01/30/24 13:17 98.6 F 79 18 139/51 98 01/30/24 11:50 78 20 138/73 98 01/30/24 09:56 98.4 F 96 18 133/47 100 Intake and Output 01/30/24 01/31/24 01/31/24 22:59 06:59 14:59 Intake Total 560 297 Output Total 400 Balance 560 -103 Intake: Blood Product 560 297 Rc Pheresis 2 As3 Unit 273 [id number] Rc Pheresis 2 As3 Unit 287 [id number] Rc Pheresis 2 As3 Unit 0 297 [id number] Output: Urine 400 Other: Weight 94.347 kg - Constitutional General appearance: cooperative, no acute distress, obese - EENT Eyes: anicteric sclerae, EOMI ENT: hearing grossly normal, normal oropharynx - Respiratory Respiratory: bilateral: CTA - Cardiovascular Rhythm: regular Heart sounds: normal: S1, S2 Abnormal Heart Sounds: no systolic murmur, no diastolic murmur, no rub, no S3 Gallop, no S4 Gallop, no click, no other leg Peripheral Edema: bilateral: None - Gastrointestinal General gastrointestinal: no absent bowel sounds, no decreased bowel sounds, no distended, no hepatomegaly, no hyperactive bowel sounds, normal bowel sounds, no organomegaly, no rigid, no scaphoid, soft, no splenomegaly, no tenderness, no umbilical hernia, no ventral hernia - Integumentary Integumentary: normal - Neurologic Neurologic: CNII-XII intact - Musculoskeletal Musculoskeletal: strength equal bilaterally - Psychiatric Psychiatric: A&O x's 3, appropriate affect, intact judgment & insight Results CBC & Chem 7: 01/31/24 04:40 01/31/24 04:40 Labs: Abnormal Lab Results - Last 24 Hours (Table) 01/30/24 01/30/24 01/30/24 Range/Units 10:55 11:39 11:39 WBC 10.9 H (3.8-10.6) k/uL RBC 1.50 L (3.80-5.40) m/uL Hgb 4.5 L* (11.4-16.0) gm/dL Hct 14.4 L* (34.0-46.0) % RDW 18.3 H (11.5-15.5) % Neutrophils # (Manual) 9.27 H (1.3-7.7) k/uL Lymphocytes # (1.0-4.8) k/uL APTT 18.7 L (22.0-30.0) sec Sodium (137-145) mmol/L Potassium (3.5-5.1) mmol/L BUN (7-17) mg/dL Creatinine (0.52-1.04) mg/dL Glucose (74-99) mg/dL Troponin I (0.000-0.034) ng/mL Total Protein (6.3-8.2) g/dL Albumin (3.5-5.0) g/dL Crossmatch See Detail 01/30/24 01/30/24 01/30/24 Range/Units 11:39 11:39 14:56 WBC (3.8-10.6) k/uL RBC (3.80-5.40) m/uL Hgb (11.4-16.0) gm/dL Hct (34.0-46.0) % RDW (11.5-15.5) % Neutrophils # (Manual) (1.3-7.7) k/uL Lymphocytes # (1.0-4.8) k/uL APTT (22.0-30.0) sec Sodium 129 L (137-145) mmol/L Potassium 2.9 L (3.5-5.1) mmol/L BUN 20 H (7-17) mg/dL Creatinine 1.32 H (0.52-1.04) mg/dL Glucose 117 H (74-99) mg/dL Troponin I 0.922 H* 1.030 H* (0.000-0.034) ng/mL Total Protein 5.1 L (6.3-8.2) g/dL Albumin 3.0 L (3.5-5.0) g/dL Crossmatch 01/30/24 01/30/24 01/31/24 Range/Units 18:33 20:52 04:40 WBC (3.8-10.6) k/uL RBC 2.13 L 2.39 L (3.80-5.40) m/uL Hgb 6.8 L* D 7.4 L (11.4-16.0) gm/dL Hct 20.0 L 22.4 L (34.0-46.0) % RDW 17.7 H 17.0 H (11.5-15.5) % Neutrophils # (Manual) (1.3-7.7) k/uL Lymphocytes # 0.7 L 0.6 L (1.0-4.8) k/uL APTT (22.0-30.0) sec Sodium (137-145) mmol/L Potassium (3.5-5.1) mmol/L BUN (7-17) mg/dL Creatinine (0.52-1.04) mg/dL Glucose (74-99) mg/dL Troponin I 1.100 H* (0.000-0.034) ng/mL Total Protein (6.3-8.2) g/dL Albumin (3.5-5.0) g/dL Crossmatch 01/31/24 Range/Units 04:40 WBC (3.8-10.6) k/uL RBC (3.80-5.40) m/uL Hgb (11.4-16.0) gm/dL Hct (34.0-46.0) % RDW (11.5-15.5) % Neutrophils # (Manual) (1.3-7.7) k/uL Lymphocytes # (1.0-4.8) k/uL APTT (22.0-30.0) sec Sodium 131 L (137-145) mmol/L Potassium (3.5-5.1) mmol/L BUN (7-17) mg/dL Creatinine 1.22 H (0.52-1.04) mg/dL Glucose 126 H (74-99) mg/dL Troponin I (0.000-0.034) ng/mL Total Protein (6.3-8.2) g/dL Albumin (3.5-5.0) g/dL Crossmatch Assessment and Plan (1) Rectal bleeding Current Visit: Yes Status: Chronic Priority: Medium Code(s): K62.5 - HEMORRHAGE OF ANUS AND RECTUM SNOMED Code(s): 42746308 (2) Normochromic normocytic anemia Current Visit: Yes Status: Chronic Priority: Medium Code(s): D64.9 - ANEMIA, UNSPECIFIED SNOMED Code(s): 75644797 (3) History of radiation therapy Current Visit: No Status: Chronic Priority: High Code(s): Z92.3 - PERSONAL HISTORY OF IRRADIATION SNOMED Code(s): 863329409 Plan: Rectal bleeding -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 Renee. She has had cauterization x 2. She has been using steroid enemas as well as medication to try and reduce some of the bleeding. -Plans in the near future for evaluation at [facility]. Also has been discussion of possible hyperbaric treatment Anemia secondary to above -Patient has been being seen in the office weekly for CBC and PRBC transfusions as needed. Will increase patient to twice a week CBC monitoring to try and prevent her having to come to the ER or be admitted -Patient will continue to receive IV iron -Goal is to keep Hgb 7 or higher History of breast cancer and bladder carcinoma. Diagnosis and treatment as described in HPI. Patient currently has no evidence of active malignancy. Doctor attests: I performed a history and physical examination of this patient, developed impression and plan of care. Discussed with dictator. I agree with dictators note, documented as a scribe.
--- NOTE | 2024-01-31 22:37 | P.DS ---
Providers Date of admission: 01/30/24 13:46 Expected date of discharge: 01/31/24 Attending physician: René Bosch Consults: 01/30/24 13:44 Consult Physician Urgent Consulting Provider: Damon Molina Consult Reason/Comments: Acute on chronic anemia Do you want consulting provider notified?: Yes 01/30/24 15:13 Consult Physician Routine Consulting Provider: Tonny Renee Consult Reason/Comments: Positive troponin Do you want consulting provider notified?: Yes [facility] Course: Chief Complaint: Short of breath Patient was seen by me this afternoon in the ER. pleasant 73-year-old patient, follows with Dr. Roth. Chronic stable medical conditions include atrial fibrillation, CHF, diabetes, hypertension, hyperlipidemia, osteoarthritis, chronic kidney disease, obstructive sleep apnea uses CPAP, left breast cancer with surgery over 10 years ago, CAD with stent . Patient lives with her . Patient was here in September of this year. Has been diagnosed with radiation colitis and had local coagulation by Dr. Michael Renee. Since then patient is continued to bleed on a regular basis. Keeps getting blood transfusions anyway from 1 to 2 units a week. Follows with Dr. 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 Patient now presents short of breath weak tired accompanied by daughter. Was down to 4.5. Use of blood were initially ordered in the ER. Patient does have appointment at [facility]. Coming up shortly. Denies any chest pain. January 30: Patient hemoglobin this morning. 7.4. Did receive 3 units of blood. Discussed with the patient son. Patient due to follow-up at [facility] this Monday for an appointment. Questions answered. Patient's son to understand options in this town extremely limited. Social history: Lives with . Drinks 1 to 2 glasses of wine daily. Smoked a pack a day for about 20 years stopped in 2005. Physical examination: VITAL SIGNS: 98.2, 85, 18, 135 x 53, 97% room air GENERAL:, Reclining in bed, comfortable EYES: Pupils equal. Conjunctiva pale HEENT: External appearance of nose and ears normal, oral cavity grossly normal. decrease in hearing NECK: JVD not raised; masses not palpable. HEART: First and second heart sounds are normal; no edema. LUNGS: Respiratory rate normal; slightly decreased breath sound n. ABDOMEN: Soft, nontender, liver spleen not palpable, no masses palpable. PSYCH: Answering question appropriately to slightly forgetful l. 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 Patient had local coagulation done by Dr. Michael Renee in September of this year for the telangiectasia. From above. Patient is a several units of blood transfused since then. Now presents with hemoglobin less than 5. Patient has an appointment at [facility] later this week -Severe anemia symptomatic from above Admission hemoglobin 4.5. Received 3 units of blood. -Acute type II HI, secondary to severe blood loss, positive troponin Patient cannot be given any antiplatelet agents/blood thinners. Seen by cardiology. Outpatient follow-up. With her own hide dyer Dr. Peace -Paroxysmal atrial fibrillation currently sinus rhythm Cardizem XR 120 mg a day -Chronic congestive heart failure. EF not known Bumex 1 mg a day Aldactone 25 mg a day -Sigmoid diverticulosis -Diabetes mellitus type 2, Diet controlled -Hyperlipidemia Crestor 20 mg nightly -Primary osteoarthritis Tylenol as needed -Chronic kidney disease stage III likely nephrosclerosis Follow renal function -Obstructive sleep apnea uses CPAP -History of left breast cancer -Coronary artery disease with stent Crestor. -Essential hypertension Cozaar 50 mg a day Cardizem -Bladder cancer that was removed -Anxiety depression Prozac. Xanax -Obesity BMI 40.6 Weight loss measures -Full code Disposition: Home Past Medical History Past Medical History: Atrial Fibrillation, Cancer, Heart Failure, Diabetes Mellitus, Hyperlipidemia, Hypertension, Osteoarthritis (OA), Renal Disease, Sleep Apnea/CPAP/BIPAP Additional Past Medical History / Comment(s): lt breast cancer-*do not use lt arm for b/p,IV's*, new dx. bladder cancer- had surg. heart murmur, SOB w/exertion. has cpap , bladder CA History of Any Multi-Drug Resistant Organisms: None Reported Past Surgical History: Breast Surgery, Section, Cholecystectomy, Heart Catheterization With Stent, Orthopedic Surgery Additional Past Surgical History / Comment(s): lt breast nipple removed, 20 lymph nodes removed lt axillae, hemorroidectomy, melvin. feet surgery, rt great toe screws, bladder tumor removed September @ Past Anesthesia/Blood Transfusion Reactions: Previous Problems w/ Anesthesia Additional Past Anesthesia/Blood Transfusion Reaction / Comment(s): pt has anesthesia letter indicating need for glidoscope due to difficult intubation Date of Last Stent Placement:: 2019 Past Psychological History: Anxiety, Depression Smoking Status: Former smoker Plan - Discharge Summary New Discharge Prescriptions: Continue FLUoxetine HCL [PROzac] 20 mg PO DAILY Multivitamins, Thera [Multivitamin (formulary)] 1 tab PO DAILY Bumetanide [BUMEX] 1 mg PO DAILY Rosuvastatin [Crestor] 20 mg PO HS Balsalazide Disodium [Colazal] 2,250 mg PO TID dilTIAZem HCL [dilTIAZem HCL 24Hr ER (Xr)] 120 mg PO DAILY Vitamin B-12 (Unknown Dose) 1 dose PO DAILY Vitamin C (Unknown Dose) 1 dose PO DAILY Vitamin D3 (Unknown Dose) 1 tab PO DAILY Sennosides/Docusate Sodium [Senna Plus 8.6-50 mg Tablet] 1 tab PO Q2D@2100 HYDROcodone/APAP 5-325MG [[place] 5-325] 1 tab PO Q6HR PRN PRN Reason: Pain Spironolactone [Aldactone] 25 mg PO HS Losartan [Cozaar] 50 mg PO HS ALPRAZolam [Xanax] 0.5 mg PO TID PRN PRN Reason: Anxiety Hydrocortisone Enema [Colocort Enema] 100 mg RECTAL HS Psyllium Husk [Metamucil] 0.4 gm PO DAILY Discharge Medication List FLUoxetine HCL [PROzac] 20 mg PO DAILY 03/13/20 [History] Multivitamins, Thera [Multivitamin (formulary)] 1 tab PO DAILY 12/09/22 [History] ALPRAZolam [Xanax] 0.5 mg PO TID PRN 10/05/23 [History] Bumetanide [BUMEX] 1 mg PO DAILY 10/05/23 [History] Losartan [Cozaar] 50 mg PO HS 10/05/23 [History] Rosuvastatin [Crestor] 20 mg PO HS 10/05/23 [History] Balsalazide Disodium [Colazal] 2,250 mg PO TID 01/30/24 [History] HYDROcodone/APAP 5-325MG [[place] 5-325] 1 tab PO Q6HR PRN 01/30/24 [History] Hydrocortisone Enema [Colocort Enema] 100 mg RECTAL HS 01/30/24 [History] Psyllium Husk [Metamucil] 0.4 gm PO DAILY 01/30/24 [History] Sennosides/Docusate Sodium [Senna Plus 8.6-50 mg Tablet] 1 tab PO Q2D@2100 01/30/24 [History] Spironolactone [Aldactone] 25 mg PO HS 01/30/24 [History] Vitamin B-12 (Unknown Dose) 1 dose PO DAILY 01/30/24 [History] Vitamin C (Unknown Dose) 1 dose PO DAILY 01/30/24 [History] Vitamin D3 (Unknown Dose) 1 tab PO DAILY 01/30/24 [History] dilTIAZem HCL [dilTIAZem HCL 24Hr ER (Xr)] 120 mg PO DAILY 01/30/24 [History] Follow up Appointment(s)/Referral(s): Jake Peace MD [STAFF PHYSICIAN] - 1 Week Isiah Roth MD [Primary Care Provider] - 1-2 days Patient Instructions/Handouts: Anemia (ED) Discharge Disposition: HOME SELF-CARE
--- NOTE | 2024-02-01 06:33 | CA ---
Transthoracic Echo Report Name: Nallely Snyder Age: 74 Gender: F : 1950 Exam Date: 01/31/2024 09:32 Exam Location: [facility] Ht (in): 60 Wt (lb): 208 Ordering Physician: Dyllan Mcgrath DO ([email or web address]) Attending/Referring Phys: Student Support Advisor Angelica Underwood RDCS Procedure CPT: Indications: elevated trops, Non-ST elevation (NSTEMI) myocardial infarction Cardiac Hx: Breast Cancer Technical Quality: Fair Contrast 1: Definity Total Dose (mL): 2 Contrast 2: Total Dose (mL): MEASUREMENTS (Male / Female) Normal Values 2D ECHO LVOT Diameter 1.6 cm LV Diastolic Volume MOD BP 46.2 cm??? 67 - 155 / 56 - 104 cm??? LV Systolic Volume MOD BP 22.0 cm??? 22 - 58 / 19 - 49 cm??? LV Ejection Fraction MOD BP 52.4 % >= 55 % LV Cardiac Index MOD BP 932.8 cm???/min???m??? LV Diastolic Volume MOD 4C 52.8 cm??? LV Systolic Volume MOD 4C 25.1 cm??? LV Ejection Fraction MOD 4C 52.4 % LV Cardiac Index MOD 4C 1064.3 cm???/min???m??? LV Diastolic Length 4C 6.3 cm LV Systolic Length 4C 5.3 cm LV Diastolic Volume MOD 2C 41.6 cm??? LV Systolic Volume MOD 2C 18.4 cm??? LV Ejection Fraction MOD 2C 55.9 % LV Cardiac Index MOD 2C 894.7 cm???/min???m??? LV Diastolic Length 2C 6.4 cm LV Systolic Length 2C 5.7 cm M-MODE LV Diastolic Diameter MM 4.6 cm 4.2 - 5.9 / 3.9 - 5.3 cm LV Systolic Diameter MM 2.3 cm LV Cardiac Index MM Teich 3148.2 cm???/min???m??? IVS Diastolic Thickness MM 1.1 cm 0.6 - 1.0 / 0.6 - 0.9 cm LVPW Diastolic Thickness MM 1.5 cm 0.6 - 1.0 / 0.6 - 0.9 cm LV Relative Wall Thickness MM 0.6 0.24 - 0.42 / 0.22 - 0.42 LV Mass Index MM 123.1 g/m??? 49 - 115 / 43 - 95 g/m??? Aortic Root Diameter MM 2.4 cm LA Systolic Diameter MM 4.0 cm LA Ao Ratio MM 1.7 AV Cusp Separation MM 1.5 cm DOPPLER AV Peak Velocity 213.5 cm/s AV Peak Gradient 18.2 mmHg AV Mean Velocity 152.9 cm/s AV Mean Gradient 10.3 mmHg AV Velocity Time Integral 51.0 cm LVOT Peak Velocity 133.1 cm/s LVOT Peak Gradient 7.1 mmHg LVOT Velocity Time Integral 29.9 cm LVOT Stroke Volume 59.6 cm??? LVOT Stroke Volume Index 31.4 ml/m??? LVOT Cardiac Index 2295.0 cm???/min???m??? AV Area Cont Eq vti 1.2 cm??? AV Area Cont Eq pk 1.2 cm??? MV Peak Velocity 136.4 cm/s MV Peak Gradient 7.4 mmHg MV Mean Velocity 93.9 cm/s MV Mean Gradient 4.0 mmHg MV Velocity Time Integral 39.6 cm Mitral E Point Velocity 145.2 cm/s Mitral A Point Velocity 120.4 cm/s Mitral E to A Ratio 1.2 MV Deceleration Time 331.5 ms MV E' Velocity 7.4 cm/s Mitral E to MV E' Ratio 19.7 TR Peak Velocity 174.1 cm/s TR Peak Gradient 12.1 mmHg FINDINGS Left Ventricle Left ventricular ejection fraction is estimated at 55-60 %. Mildly increased septal wall thickness. Moderately increased posterior wall thickness. No obvious regional wall motion abnormalities. Right Ventricle Normal right ventricular size and function. Right ventricular systolic pressure within normal limits. Right Atrium Normal right atrial size. Left Atrium Mild left atrial dilatation. Mitral Valve Structurally normal mitral valve. Mild mitral regurgitation. No mitral stenosis. Aortic Valve Mild aortic stenosis with a peak gradient of 18mmHg and a mean gradient of 10 mmHg. Trace aortic regurgitation. Tricuspid Valve Structurally normal tricuspid valve. Mild tricuspid regurgitation. No tricuspid stenosis. Pulmonic Valve Structurally normal pulmonic valve. Trace pulmonic regurgitation. Structurally normal pulmonic valve. Pericardium No pericardial or pleural effusion. Aorta Normal size aortic root and proximal ascending aorta. CONCLUSIONS Left ventricular ejection fraction is estimated at 55-60 %. No obvious regional wall motion abnormalities. Moderate concentric LVH LA dilatation Mild aortic stenosis, mean gradient 10 mmHg No other significant valve dysfunction Normal RV size systolic function with normal RVSP Previewed by: Dr Misael Celis (Electronically Signed) Final Date: 01 February 2024 06:32
== END 2024-01-31 14:25 | disposition home or self-care (01) ==
LOC: EC 09:51 → 3SCARD 13:46 → INTOOBSV 13:46 → 1SOBS 14:12 → 3SCARD 14:15 → 1SOBS 14:15 → 3SCARD 15:07 → UNDODISIN 01-31 14:25
PROVIDERS: ADMIT Hospitalist; ATTEND Hospitalist
DX: K52.0 Gastroenteritis and colitis due to radiation (principal); D62 Acute posthemorrhagic anemia; Y84.2 Radiological procedure and radiotherapy as the cause of abnormal reaction of the patient, or of later complication, without mention of misadventure at the time of the procedure; E11.22 Type 2 diabetes mellitus with diabetic chronic kidney disease; I13.0 Hypertensive heart and chronic kidney disease with heart failure and stage 1 through stage 4 chronic kidney disease, or unspecified chronic kidney disease; I21.A1 Myocardial infarction type 2; I25.10 Atherosclerotic heart disease of native coronary artery without angina pectoris; E78.5 Hyperlipidemia, unspecified; F32.A Depression, unspecified; F41.9 Anxiety disorder, unspecified; G47.33 Obstructive sleep apnea (adult) (pediatric); I48.0 Paroxysmal atrial fibrillation; I50.30 Unspecified diastolic (congestive) heart failure; N18.9 Chronic kidney disease, unspecified; E66.9 Obesity, unspecified; Z79.82 Long term (current) use of aspirin; Z79.899 Other long term (current) drug therapy; Z87.891 Personal history of nicotine dependence; Z92.21 Personal history of antineoplastic chemotherapy; Z92.3 Personal history of irradiation; Z95.5 Presence of coronary angioplasty implant and graft; Z85.3 Personal history of malignant neoplasm of breast; Z85.51 Personal history of malignant neoplasm of bladder; Z82.49 Family history of ischemic heart disease and other diseases of the circulatory system; Z88.0 Allergy status to penicillin; Z88.1 Allergy status to other antibiotic agents; Z88.2 Allergy status to sulfonamides; Z68.41 Body mass index [BMI] 40.0-44.9, adult
CPT/HCPCS: 36430; 96361 ×2; 96365; 96366; 99291; 36415; 93005; 86900; 86901; 80053; 80048; 83735; 84484; 85025 ×2; 85610; 85730; 86850; 86920; G0378 ×2; C8929; P9016; J3480; Q9957; 93306